=== PATIENT | male | born 1950 | race Caucasian/White ===

== ENCOUNTER 2016-11-08 12:01 | Emergency (ER) | payer OTHER ==
[2016-11-08 12:15] VITALS: BP 137/92; TEMP 97.7; BMI 27.4
[2016-11-08] MEDS ORDERED: AMOX TR/POT CLAV 875MG/125MG TABLETS (FP) ONE (12:19)
[2016-11-08] MEDS ORDERED: AMOX TR/POT CLAV 875MG/125MG TABLETS (FP) PO ONE (12:19)
--- NOTE | 2016-11-08 12:22 | PDOC ---
History of Present Illness - General Chief Complaint: Pain Stated Complaint: LEFT CHEEK SWELLING Time Seen by Provider: 11/08/16 12:03 History Source: Patient Exam Limitations: No Limitations - History of Present Illness Initial Comments: 11/08/16 12:22 65 she'll male with past medical history of hypertension, hyperlipidemia, coronary disease status post [place], BPH presents with left cheek swelling. 2 days ago, the patient had accidentally bit down with his dentures on his left cheek. Developed left cheek swelling. No fevers or chills. No drooling or difficulty breathing or voice changes. Had taken a dose of Levaquin that he had from leftovers and came to ED for further evaluation. States that he can see his dentist tomorrow. Past History - Past Medical History Allergies/Adverse Reactions: Allergies Allergy/AdvReac Type Severity Reaction Status Date / Time No Known Allergies Allergy Verified 11/08/16 12:03 Home Medications: Ambulatory Orders Aspirin [ASA -] 325 mg PO DAILY 07/07/13 Tamsulosin HCl [Flomax] 0.4 mg PO DAILY 07/07/13 Amoxicillin/Potassium Clav [Augmentin 875-125 Tablet] 1 each PO BID #14 tablet 11/08/16 Simvastatin 40 mg PO DAILY 11/08/16 Cardiac Disorders: Yes ([place] in 06/2013) Diabetes: No GI Disorders: No Disorders: Yes (BPH) HTN: No Hypercholesterolemia: Yes - Surgical History Cardiac Surgery: Yes (cardiac cath,stents x 1) - Psycho/Social/Smoking Cessation Hx Anxiety: No Suicidal Ideation: No Smoking History: Former smoker If you are a former smoker, when did you quit?: 2002 Information on smoking cessation initiated: No Hx Alcohol Use: No Drug/Substance Use Hx: No Substance Use Type: None Review of Systems - Review of Systems Able to Perform ROS?: Yes Comments:: 11/08/16 12:23 GENERAL/CONSTITUTIONAL: No fever, weakness. HEAD, EYES, EARS, NOSE AND THROAT: +left cheek swelling CARDIOVASCULAR: No chest pain or shortness of breath. RESPIRATORY: No cough, wheezing, or hemoptysis. GASTROINTESTINAL: No abdominal pain, nausea, vomiting, diarrhea, or decreased PO intolerance. GENITOURINARY: No dysuria, frequency, or change in urination. MUSCULOSKELETAL: No joint or muscle swelling or pain. No neck or back pain. SKIN: No rash NEUROLOGIC: No headache, vertigo, loss of consciousness, or change in strength/ sensation. ENDOCRINE: No increased thirst. No abnormal weight change. HEMATOLOGIC/LYMPHATIC: No anemia, easy bleeding, or history of blood clots. ALLERGIC/IMMUNOLOGIC: No hives or skin allergy. *Physical Exam - Vital Signs Last Vital Signs Temp Pulse Resp BP Pulse Ox 97.7 F 119 H 18 137/92 98 11/08/16 12:02 11/08/16 12:02 11/08/16 12:02 11/08/16 12:02 11/08/16 12:02 - Physical Exam Comments: 11/08/16 12:23 GENERAL: Awake, alert, and fully oriented, in no acute distress. HEAD: No signs of trauma EYES: PERRLA, EOMI, sclera anicteric, conjunctiva clear ENT: +left cheek induration approx 3x3 cm. No areas of fluctuance. TTP. no open wounds. NECK: Normal ROM, supple, no lymphadenopathy, JVD, or masses LUNGS: Breath sounds equal, clear to auscultation bilaterally. No wheezes, and no crackles HEART: Regular rate and rhythm, normal S1 and S2, no murmurs, rubs or gallops ABDOMEN: Soft, nontender, normoactive bowel sounds. No guarding, no rebound. No masses EXTREMITIES: Normal range of motion, no edema. No clubbing or cyanosis. No cords, erythema, or tenderness NEUROLOGICAL: Cranial nerves II through XII grossly intact. Normal speech, normal gait SKIN: Warm, Dry, normal turgor, no rashes or lesions noted. Medical Decision Making - Medical Decision Making 11/08/16 12:20 Vital Signs Temp Pulse Resp BP Pulse Ox 97.7 F 119 H 18 137/92 98 11/08/16 12:02 11/08/16 12:02 11/08/16 12:02 11/08/16 12:02 11/08/16 12:02 65 year old male c/ left cheek cellulitis. No evidence of airway compromise. Well-appearing and nontoxic. No evidence of abscess at this time on my physical exam. Initiate augmentin. Pt states he can see his dentist tomorrow. Return precautions given including difficulty breathing. I discussed the physical exam findings, ancillary test results and final diagnoses with the patient. I answered all of the patient's questions. The patient was satisfied with the care received and felt comfortable with the discharge plan and treatment plan. The patient will call their primary care physician within 24 hours to arrange follow-up and will return to the Emergency Department with any new, persistant or worsening symptoms. *DC/Admit/Observation/Transfer Diagnosis at time of Disposition: Cellulitis of cheek - Discharge Dispostion Disposition: HOME Condition at time of disposition: Stable Admit: No - Prescriptions Prescriptions: Amoxicillin/Potassium Clav [Augmentin 875-125 Tablet] 1 each PO BID #14 tablet - Referrals Referrals: Ventura Izaguirre MD [Primary Care Provider] - - Patient Instructions Printed Discharge Instructions: DI for Cellulitis -- Adult Additional Instructions: It is very important that you take your antibiotic (augmentin) every 12 hours for the next week. Please see your dentist tomorrow. If you notice that swelling has worsened drastically, or you cannot breathe, or have drooling because difficulty swallowing, it is important that you return to the ER immediately.
[2016-11-08 12:27] VITALS: PULSE 109
== END 2016-11-08 12:29 | disposition home or self-care (01) ==
LOC: FER 12:01
DX: L03.211 Cellulitis of face (principal); I25.2 Old myocardial infarction; Z95.5 Presence of coronary angioplasty implant and graft; Z87.891 Personal history of nicotine dependence; E78.00 Pure hypercholesterolemia, unspecified; N40.0 Benign prostatic hyperplasia without lower urinary tract symptoms
CPT/HCPCS: 99282-25

== ENCOUNTER 2016-12-17 13:48 | Inpatient (IN) | payer OTHER ==
[2016-12-17] MEDS ORDERED: SODIUM CHLORIDE 0.9% 1000 ML INFUS.BAG IV ONE ×2 (14:07→15:49)
--- NOTE | 2016-12-17 14:08 | PDOC ---
History of Present Illness - General History Source: Patient, Old Records Exam Limitations: No Limitations - History of Present Illness Initial Comments: 12/17/16 14:15 The patient is a 66 year old male with a past medical history hypertension, hyperlipidemia, coronary disease status post [place], BPH, who presents to the Emergency Department for further evaluation of fever and chills today. The patient states that on Tuesday he had a prostate biopsy performed by Dr. Romo who informed him that if he had any fever or chills he should report to the ED. The patient states that he measured his fever at home to be 102F and had associated chills. The patient did not report any alleviating or exacerbating factors. The patient did not try to treat symptoms at home. He notes that he had one episode of hematuria the afternoon after having his prostate biopsy. The patient denies nausea, vomiting, and diarrhea. The patient denies chest pain, cough, and shortness of breath. <Spencer Titus - Last Filed: 12/17/16 14:15> <Roselyn Saini - Last Filed: 12/17/16 17:40> - General Chief Complaint: Urinary Problem Stated Complaint: FEVER,CHILLS,URINARY PROBLEM Time Seen by Provider: 12/17/16 13:55 Past History <Spencer Titus - Last Filed: 12/17/16 14:15> - Past Medical History Cardiac Disorders: Yes ([place] in 06/2013) Diabetes: No GI Disorders: No Disorders: Yes (BPH) HTN: No Hypercholesterolemia: Yes - Surgical History Cardiac Surgery: Yes (cardiac cath,stents x 1) - Psycho/Social/Smoking Cessation Hx Anxiety: No Suicidal Ideation: No Smoking History: Former smoker Have you smoked in the past 12 months: No If you are a former smoker, when did you quit?: 2002 Information on smoking cessation initiated: No Hx Alcohol Use: No Drug/Substance Use Hx: No Substance Use Type: None <Roselyn Saini - Last Filed: 12/17/16 17:40> - Past Medical History Allergies/Adverse Reactions: Allergies Allergy/AdvReac Type Severity Reaction Status Date / Time No Known Allergies Allergy Verified 12/17/16 13:52 Home Medications: Ambulatory Orders Aspirin [ASA -] 325 mg PO DAILY 07/07/13 Tamsulosin HCl [Flomax] 0.4 mg PO DAILY 07/07/13 Simvastatin 40 mg PO DAILY 11/08/16 Review of Systems - Review of Systems Able to Perform ROS?: Yes Comments:: GENERAL/CONSTITUTIONAL: (+) Fever, Chills. No weakness. HEAD, EYES, EARS, NOSE AND THROAT: No change in vision. No ear pain or discharge. No sore throat. GASTROINTESTINAL: No nausea, vomiting, diarrhea or constipation. GENITOURINARY: (+) Hematuria. No dysuria or frequency. CARDIOVASCULAR: No chest pain or shortness of breath. RESPIRATORY: No cough, wheezing, or hemoptysis. MUSCULOSKELETAL: No joint or muscle swelling or pain. No neck or back pain. SKIN: No rash NEUROLOGIC: No headache, vertigo, loss of consciousness, or change in strength/ sensation. ENDOCRINE: No increased thirst. No abnormal weight change. HEMATOLOGIC/LYMPHATIC: No anemia, easy bleeding, or history of blood clots. ALLERGIC/IMMUNOLOGIC: No hives or skin allergy. <Spencer Titus - Last Filed: 12/17/16 14:15> *Physical Exam - Vital Signs Last Vital Signs Temp Pulse Resp BP Pulse Ox 103.1 F H 132 H 18 149/98 97 12/17/16 14:11 12/17/16 13:51 12/17/16 13:51 12/17/16 13:51 12/17/16 13:51 - Physical Exam Comments: GENERAL: Awake, alert, and fully oriented, in no acute distress HEAD: No signs of trauma EYES: PERRLA, EOMI, sclera anicteric, conjunctiva clear ENT: Auricles normal inspection, nares patent, Moist mucosa NECK: Normal ROM, supple, no lymphadenopathy, JVD, or masses LUNGS: Breath sounds equal, clear to auscultation bilaterally. No wheezes, and no crackles HEART: Regular rate and rhythm, normal S1 and S2, no murmurs, rubs or gallops ABDOMEN: Soft, nontender, normoactive bowel sounds. No guarding, no rebound. No masses EXTREMITIES: Normal range of motion, no edema. No clubbing or cyanosis. No cords, erythema, or tenderness NEUROLOGICAL: Normal speech SKIN: Warm, Dry, normal turgor, no rashes or lesions noted. <Spencer Titus - Last Filed: 12/17/16 14:15> - Vital Signs Last Vital Signs Temp Pulse Resp BP Pulse Ox 98.6 F 132 H 18 149/98 97 12/17/16 13:51 12/17/16 13:51 12/17/16 13:51 12/17/16 13:51 12/17/16 13:51 <Roselyn Saini - Last Filed: 12/17/16 17:40> Heart Score/ECG Review #1 General ECG Interpretation: Sinus Rhythm, Normal Rate (sinus tachycardia, rate 114 bpm), Normal Intervals, No acute ischemic changes - ECG Intrepretation Rhythm: Regular Rhythm - Collins Collins: Normal - ST and T Non Specific ST-T Wave changes: Yes Comment:: 12/17/16 17:40 twi III, AVF v5, V6 <Roselyn Saini - Last Filed: 12/17/16 17:40> ED Treatment Course - LABORATORY CBC & Chemistry Diagram: 12/17/16 14:25 12/17/16 14:25 <Roselyn Saini - Last Filed: 12/17/16 17:40> Medical Decision Making - Medical Decision Making 12/17/16 14:04 66 yo Male with h/o BPH, s/p prostate biopsy 2 days ago, here today with c/o fever 102 and chills. was taking abx, unknown name since procedure. no urinary complaints, no n/v no new back pain. since, fever has resolved. no other complaints. open awake, alert lungs CTAB. heart RRR no mr/g. abd soft NT. skin warm and dry. differential: sepsis, uti, bacteremia. plan cbc lyts cultures ua. reassess. will d/w dr. blunt. 12/17/16 15:42 d/w DR Barron, who request admission to the hospitalist. discussed concerns regarding pt , who has alzheimers dementia and lives with patient. will try to coordinate some to stay with her at home. <Roselyn Saini - Last Filed: 12/17/16 17:40> *DC/Admit/Observation/Transfer - Attestations Scribe Attestion: Documentation prepared by Spencer Titus, acting as medical records director for Roselyn Saini MD. <Spencer Titus - Last Filed: 12/17/16 14:15> - Discharge Dispostion Admit: Yes <Roselyn Saini - Last Filed: 12/17/16 17:40> Diagnosis at time of Disposition: Sepsis, UTI (urinary tract infection) - Discharge Dispostion Condition at time of disposition: Fair
[2016-12-17] MEDS ORDERED: ACETAMINOPHEN 325 MG TABLET (FP) PO ONE (14:09)
[2016-12-17] MEDS ORDERED: ACETAMINOPHEN 325 MG TABLET (FP) ONE (14:11)
[2016-12-17 14:50] LABS: ALK PHOS 66 U/L (32-92); ANION GAP 10 (8-16); BILIRUBIN,TOTAL 0.6 mg/dl (0.2-1.0); CALCIUM 9.4 mg/dl (8.4-10.2); CO2 23 mmol/L (22-28); CREATININE 1.4 mg/dl (0.6-1.3); GLUCOSE,RANDOM 88 mg/dl (74-106); SGOT/AST 20 U/L (10-42); SGPT/ALT 16 U/L (10-40); TOT PROT 6.9 g/dl (6.4-8.3)
[2016-12-17 14:58] LABS: BASOPHIL 0.9 % (0-2.0); EOSINOPHIL 0.2 % (0-4.5); MCH 30.4 pg (25.7-33.7); MCHC 33.8 g/dl (32.0-35.9); MEAN CELL VOLUME 89.7 fl (80-96); MEAN PLT VOLUME 9.8 fl (7.5-11.1); NEUTROPHILS 87.6 % (42.8-82.8); PLATELET COUNT 183 K/MM3 (134-434); RDW 13.7 % (11.9-15.9); WHITE BLOOD COUNT 15.3 K/mm3 (4.0-10.8)
[2016-12-17] MEDS ORDERED: CEFTRIAXONE 1 GM in DEXTROSE 5%-WATER - 50 ML IVPB ONE (14:59)
[2016-12-17] MEDS ORDERED: VANCOMYCIN 1 GRAM (PRE-DOCKED) 1,000 MG/250 ML BAG IVPB ONE (15:00)
[2016-12-17] MEDS ORDERED: VANCOMYCIN 1,000 MG VIAL (RESTRICTED TO ID ONLY) ONE (15:08)
[2016-12-17] MEDS ORDERED: cefTRIAXone SODIUM 1 GM VIAL ONE (15:08)
[2016-12-17 15:30] LABS: URINE APPEARANCE Clear; URINE BILIRUBIN Negative (NEGATIVE); URINE BLOOD Moderate (NEGATIVE); URINE GLUCOSE (UA) Negative (NEGATIVE); URINE KETONE Negative (NEGATIVE); URINE NITRITE Positive (NEGATIVE); URINE PROTEIN Negative (NEGATIVE); URINE UROBILINOGEN 0.2 E.U/dl (0.2-1.0)
--- NOTE | 2016-12-17 16:15 | CONSULT ---
Consult Consult Specialty:: urology Referred by:: ER Reason for Consultation:: fever after prostate biopsy - History of Present Illness Chief Complaint: fever History of Present Illness: 66 year old male two days S/P TRUS prostate biopsy with fever and chills. Patient is able to void without hematuria. - History Source History Provided By: Patient Limitations to Obtaining History: No Limitations - Past Medical History Renal/: No: Renal Failure, Renal Inusuff, BPH, Cancer, Hematuria, Hemodialysis , Neurogenic Bladder, Renal Calculi, UTI, Other - Alcohol/Substance Use Hx Alcohol Use: No - Smoking History Smoking history: Former smoker Have you smoked in the past 12 months: No If you are a former smoker, when did you quit?: 2002 Home Medications - Allergies Allergies/Adverse Reactions: Allergies Allergy/AdvReac Type Severity Reaction Status Date / Time No Known Allergies Allergy Verified 12/17/16 13:52 - Home Medications Home Medications: Ambulatory Orders Aspirin [ASA -] 325 mg PO DAILY 07/07/13 Tamsulosin HCl [Flomax] 0.4 mg PO DAILY 07/07/13 Simvastatin 40 mg PO DAILY 11/08/16 Review of Systems - Review of Systems Constitutional: reports: Chills, Diaphoresis, Fever, Malaise Genitourinary: reports: Frequency. denies: Burning, Dysuria, Flank Pain, Hematuria, Incontinence Physical Exam Vital Signs: Vital Signs Temperature 98.2 F 12/17/16 15:51 Pulse Rate 118 H 12/17/16 15:51 Respiratory Rate 18 12/17/16 15:51 Blood Pressure 119/86 12/17/16 15:53 O2 Sat by Pulse Oximetry (%) 97 12/17/16 15:51 Constitutional: Yes: Well Nourished, No Distress, Calm Gastrointestinal: Yes: WNL, Normal Bowel Sounds, Soft Renal/: No: Bladder Distention, CVA Tenderness - Left, CVA Tenderness - Right , [place] Present, Hematuria Labs: CBC, BMP 12/17/16 14:25 12/17/16 14:25 Problem List - Problems (1) Acute bacterial prostatitis Assessment/Plan: fever after prostate biopsy. ID consultation spoken to. IV abx. IV hydration, blood and urine cultures. Voiding well. HD stable., Code(s): N41.0 - ACUTE PROSTATITIS
--- NOTE | 2016-12-17 17:13 | PN ---
Progress Note (short form) - Note Progress Note: ID Consult dictated High grade fever/ chills, weakness s/p prostate bx (12/15) Possible sepsis secondary to source Pending cultures, empiric meropenem Discussed with Urology
[2016-12-17 17:15] LABS: URINE COLOR YELLOW; URINE LEUK ESTERASE TRACE (NEGATIVE)
[2016-12-17] MEDS ORDERED: ONDANSETRON 4 MG/2 ML VIAL IVPB PRN (18:47)
[2016-12-17 18:53] LABS: URIC ACID CRYSTALS MODERATE /hpf (NONE SEEN); URINE BACTERIA MODERATE /hpf (NEGATIVE); URINE RBC 20-40 /hpf (0-3)
[2016-12-17] MEDS: MEROPENEM 500 MG VIAL (RESTRICTED TO ID) IVPB SCH (18:58)
[2016-12-17] MEDS: SODIUM CHLORIDE 1,000 ML IV SCH (19:30)
[2016-12-17 20:37] VITALS: BMI 28.4
[2016-12-17] MEDS: ATORVASTATIN CA 20 MG TABLET (FP) PO SCH (21:06)
[2016-12-17] MEDS ORDERED: VANCOMYCIN 1,000 MG in DEXTROSE 5%-WATER - 250 ML IVPB SCH (22:00)
--- NOTE | 2016-12-17 23:09 | HP ---
CHIEF COMPLAINT: fever PCP: Dmitriy, Urology: Kyaw HISTORY OF PRESENT ILLNESS: This is a 66 year old male with BPH who is s/p TRUS prostate biopsy on 12/15. Pt noted that he had chills around 430am this morning which resolved after voiding and getting under the covers, but then later around 1030 felt tired and so he took his temperature and it was 103. Pt called his urologist who instructed him to go to the ED. Pt feeling better on exam but is repeatedly going to the bathroom every 15-20 minutes and only a little comes out and then he goes back to bed and feels as if he has to go again. ER course was notable for: (1) temp 103.1 (2) WBC 15.3, lactic acid 2.2 (3) tx with ceftriaxone Recent Travel: none PAST MEDICAL HISTORY: HTN HLD CAD s/p [place] 2012 BPH PAST SURGICAL HISTORY: stent x 1 2012 tonsillectomy age 10 Social History: Smoking: quit 2002, smoked 3+ppd since age [age] Alcohol: pt denies Drugs: pt denies Family History: mother age 64-ME, h/o DM father age 69-ME, h/o emphysema Allergies No Known Allergies Allergy (Verified 12/17/16 13:52) HOME MEDICATIONS: 3 Medication Instructions Recorded Aspirin [ASA -] 325 mg PO DAILY 07/07/13 Tamsulosin HCl [Flomax] 0.4 mg PO DAILY 07/07/13 Simvastatin 40 mg PO DAILY 11/08/16 REVIEW OF SYSTEMS CONSTITUTIONAL: Present: fever, chills Absent: diaphoresis, generalized weakness, malaise, loss of appetite, weight change HEENT: Absent: rhinorrhea, nasal congestion, throat pain, throat swelling, difficulty swallowing, mouth swelling, ear pain, eye pain, visual changes CARDIOVASCULAR: Absent: chest pain, syncope, palpitations, irregular heart rate, lightheadedness , peripheral edema RESPIRATORY: Absent: cough, shortness of breath, dyspnea with exertion, orthopnea, wheezing, stridor, hemoptysis GASTROINTESTINAL: Absent: abdominal pain, abdominal distension, nausea, vomiting, diarrhea, constipation, melena, hematochezia GENITOURINARY: Present: frequency Absent: dysuria, urgency, hesitancy, hematuria, flank pain, genital pain MUSCULOSKELETAL: Absent: myalgia, arthralgia, joint swelling, back pain, neck pain SKIN: Absent: rash, itching, pallor HEMATOLOGIC/IMMUNOLOGIC: Absent: easy bleeding, easy bruising, lymphadenopathy, frequent infections ENDOCRINE: Absent: unexplained weight gain, unexplained weight loss, heat intolerance, cold intolerance NEUROLOGIC: Absent: headache, focal weakness or paresthesias, dizziness, unsteady gait, seizure, mental status changes, bladder or bowel incontinence PSYCHIATRIC: Absent: anxiety, depression, suicidal or homicidal ideation, hallucinations. PHYSICAL EXAMINATION Vital Signs - 24 hr 3 12/17/16 12/17/16 12/17/16 13:51 14:11 14:25 15:51 Temperature 98.6 F 103.1 F H 98.2 F Pulse Rate 132 H Pulse Rate [ 118 H Apical] Respiratory 18 18 Rate Blood Pressure 149/98 149/98 Blood Pressure 119/86 [Arm] O2 Sat by Pulse 97 97 Oximetry (%) 3 12/17/16 12/17/16 12/17/16 18:17 21:00 22:49 Temperature 98.5 F 98.9 F Pulse Rate 95 H 102 H Pulse Rate [ 109 H Apical] Respiratory 18 16 16 19 Rate Blood Pressure 133/79 150/80 Blood Pressure [Arm] O2 Sat by Pulse 98 98 98 98 Oximetry (%) GENERAL: Awake, alert, and fully oriented, in no acute distress. HEAD: Normal with no signs of trauma. EYES: Pupils equal, round and reactive to light, extraocular movements intact, sclera anicteric, conjunctiva clear. No lid lag. EARS, NOSE, THROAT: Ears normal, nares patent, oropharynx clear without exudates. Moist mucous membranes. NECK: Normal range of motion, supple without lymphadenopathy, JVD, or masses. LUNGS: Breath sounds equal, clear to auscultation bilaterally. No wheezes, and no crackles. No accessory muscle use. HEART: Regular rate and rhythm, normal S1 and S2 without murmur, rub or gallop. ABDOMEN: Soft, nontender, not distended, normoactive bowel sounds, no guarding, no rebound, no masses. No hepatomegaly or splenomegaly. Suprapubic area noted with dullness to percussion, fullness, tender on palpation MUSCULOSKELETAL: Normal range of motion at all joints. No bony deformities or tenderness. No CVA tenderness. UPPER EXTREMITIES: 2+ pulses, warm, well-perfused. No cyanosis. No clubbing. No peripheral edema. LOWER EXTREMITIES: 2+ pulses, warm, well-perfused. No calf tenderness. No peripheral edema. NEUROLOGICAL: Cranial nerves II-XII intact. Normal speech. Normal gait. PSYCHIATRIC: Cooperative. Good eye contact. Appropriate mood and affect. SKIN: Warm, dry, normal turgor, no rashes or lesions noted, normal capillary refill. Laboratory Results - last 24 hr 3 12/17/16 12/17/16 12/17/16 12/17/16 14:02 14:25 14:25 15:30 WBC 15.3 H RBC 5.61 H Hgb 17.0 H Hct 50.3 H MCV 89.7 MCHC 33.8 RDW 13.7 Plt Count 183 MPV 9.8 Neutrophils % 87.6 H Lymphocytes % 3.5 L Monocytes % 7.8 Eosinophils % 0.2 Basophils % 0.9 Sodium 136 Potassium 4.7 Chloride 103 Carbon Dioxide 23 Anion Gap 10 BUN 23 H Creatinine 1.4 H Creat Clearance w eGFR 50.55 Random Glucose 88 Lactic Acid 2.2 H* 1.2 Calcium 9.4 Total Bilirubin 0.6 AST 20 ALT 16 Alkaline Phosphatase 66 Total Protein 6.9 Albumin 4.0 Urine Color Yellow Urine Appearance Clear Urine pH 5.0 Ur Specific [place] 1.020 Urine Protein Negative Urine Glucose (UA) Negative Urine Ketones Negative Urine Blood Moderate Urine Nitrite Positive Urine Bilirubin Negative Urine Urobilinogen 0.2 e.u/dl Ur Leukocyte Esterase Trace H Urine RBC 20-40 Urine WBC 10-15 Ur Epithelial Cells 3-5 Uric Acid Crystals Moderate Urine Bacteria Moderate ASSESSMENT/PLAN: 66yM with PMH HTN, HLD, CAD s/p [place], BPH presented with fever s/p prostate biopsy 12/15. Urosepsis, severe - as evidenced by fever, tachy, WBC and lactic acid - ID consult appreciated, cont same - cont meropenem - NS @ 125cc/hr x 2 liters urinary retention - bladder scan done, >800cc in bladder - DW Dr. Ryne Stevens who recommends indwelling FC, same placed, 700cc clear yellow urine obtained - maintain IFC - urology consult appreciated - cont flomax HLD - cont zocor CAD s/p [place] - cont zocor and ASA HTN - on no medications, monitor and initiate if indicated DVT PPX - heparin 5000u SC TID FEN - NS @ 125cc/hr x 2 liters then reassess - repeat labs in am - regular diet Dispo: Pt currently requires inpatient management of his emergent condition. Visit type - Emergency Visit Emergency Visit: Yes ED Registration Date: 12/17/16 Care time: The patient presented to the Emergency Department on the above date and was hospitalized for further evaluation of their emergent condition. - New Patient This patient is new to me today: Yes Date on this admission: 12/17/16 - Critical Care Critical Care patient: No
[2016-12-17] MEDS ORDERED: LIDOCAINE HCL 2% JELLY (30 ML/TUBE) TP ONE (23:13)
[2016-12-17] MEDS: ACETAMINOPHEN 325 MG TABLET (FP) PO PRN (23:59)
[2016-12-18] MEDS: HEPARIN NA (PORCINE) 5,000 UNITS/ML 1ML VIAL SQ SCH ×3 (01:47→17:43)
[2016-12-18] MEDS: MEROPENEM 500 MG VIAL (RESTRICTED TO ID) IVPB SCH ×3 (01:47→17:43)
[2016-12-18 08:02] LABS: ALBUMIN 3.2 g/dl (3.5-5.0); ALK PHOS 52 U/L (32-92); ANION GAP 6 (8-16); BILIRUBIN,TOTAL 1.1 mg/dl (0.2-1.0); CALCIUM 8.8 mg/dl (8.4-10.2); CO2 23 mmol/L (22-28); COCKROFT - GAULT 80.94; GLUCOSE,RANDOM 98 mg/dl (74-106); SGOT/AST 16 U/L (10-42); SGPT/ALT 13 U/L (10-40); TOT PROT 5.6 g/dl (6.4-8.3)
[2016-12-18 08:06] LABS: BASOPHIL 0.1 % (0-2.0); EOSINOPHIL 0.3 % (0-4.5); MCH 30.1 pg (25.7-33.7); MCHC 33.8 g/dl (32.0-35.9); MEAN CELL VOLUME 88.9 fl (80-96); MEAN PLT VOLUME 9.3 fl (7.5-11.1); NEUTROPHILS 88.3 % (42.8-82.8); PLATELET COUNT 153 K/MM3 (134-434); RDW 13.8 % (11.9-15.9)
[2016-12-18] MEDS: TAMSULOSIN HCL 0.4 MG CAP.ER.24H (FP) PO SCH (08:47)
[2016-12-18] MEDS: ASPIRIN 325 MG TABLET PO SCH (09:18)
--- NOTE | 2016-12-18 09:25 | PN ---
Physical Exam: SUBJECTIVE: Patient seen and examined. Had cough productive of white sputum overnight, no CP or SOB. Had three episodes of diarrhea. No fevers, chills, or abdominal pain. OBJECTIVE: HR remains elevated at 111. Patient now states he was taking metoprolol succinate 12.5mg daily and that this was dc'd prior to surgery. Vital Signs Period Temp Pulse Resp BP Sys/Yi Pulse Ox Last 24 Hr 98.2 F-99.4 F 88-114 16-19 123-150/71-80 98-100 GENERAL: The patient is awake, alert, and fully oriented, in no acute distress. HEAD: Normal with no signs of trauma. EYES: PERRL, extraocular movements intact, sclera anicteric, conjunctiva clear. No ptosis. ENT: Ears normal, nares patent, oropharynx clear without exudates, moist mucous membranes. NECK: Trachea midline, full range of motion, supple. LUNGS: Breath sounds equal, clear to auscultation bilaterally, no wheezes, no crackles, no accessory muscle use. HEART: Tachycardic. Regular rate and rhythm, S1, S2 without murmur, rub or gallop. ABDOMEN: Soft, nontender, nondistended, normoactive bowel sounds, no guarding, no rebound, no hepatosplenomegaly, no masses. EXTREMITIES: 2+ pulses, warm, well-perfused, no edema. NEUROLOGICAL: Cranial nerves II through XII grossly intact. Normal speech, gait not observed. PSYCH: Normal mood, normal affect. SKIN: Warm, dry, normal turgor, no rashes or lesions noted Laboratory Results - last 24 hr 12/18/12/18/16 07:20 07:20 WBC 16.0 H RBC 4.92 Hgb 14.8 D Hct 43.8 MCV 88.9 MCHC 33.8 RDW 13.8 Plt Count 153 MPV 9.3 Neutrophils % 88.3 H Lymphocytes % 4.7 L D Monocytes % 6.6 Eosinophils % 0.3 Basophils % 0.1 Sodium 138 Potassium 4.4 Chloride 109 H Carbon Dioxide 23 Anion Gap 6 L BUN 13 D Creatinine 1.0 D Creat Clearance w eGFR > 60 Random Glucose 98 Calcium 8.8 Total Bilirubin 1.1 H D AST 16 ALT 13 Alkaline Phosphatase 52 D Total Protein 5.6 L Albumin 3.2 L Active Medications Generic Name Dose Route Start Last Admin Trade Name Freq PRN Reason Stop Dose Admin Acetaminophen 650 mg 12/17/16 18:47 12/17/16 23:59 Tylenol - PO 650 mg Q4H PRN Administration FEVER OR PAIN Aspirin 325 mg 12/18/16 10:00 12/18/16 09:18 Asa - PO 325 mg DAILY GULSHAN Administration Atorvastatin Calcium 20 mg 12/17/16 22:00 12/17/16 21:06 Lipitor - PO 20 mg HS GULSHAN Administration Heparin Sodium (Porcine) 5,000 unit 12/18/16 02:00 12/18/16 09:18 Heparin - SQ 5,000 unit Q8H-IV GULSHAN Administration Sodium Chloride 1,000 mls @ 125 mls/hr 12/17/16 19:00 12/17/16 19:30 Normal Saline - IV 12/19/16 02:59 125 mls/hr ASDIR GULSHAN Administration Meropenem 500 mg 12/17/16 18:00 12/18/16 01:47 Merrem (Restricted To Id) - IVPB 500 mg Q8H-IV GULSHAN Administration Ondansetron HCl 4 mg 12/17/16 18:47 Zofran Injection IVPB Q6H PRN NAUSEA Tamsulosin HCl 0.4 mg 12/18/16 08:30 12/18/16 08:47 Flomax - PO 0.4 mg DAILY@0830 GULSHAN Administration ASSESSMENT/PLAN: 66 year old male with a history of HTN, HLD, CAD s/p [place], and BPH admitted with fever s/p prostate biopsy 12/15. 1. : Sepsis secondary to UTI -Continue Meropenem -Follow up urine culture (growing lactose fermenting neg bacilli) -Follow up blood cultures -Follow WBC (16 today), fever curve (afebrile since 2pm yesterday) -Continue maintenance IVF -Maced[place] catheter for management of urinary retention -Continue Flomax 2. CARDS HLD -Continue zocor CAD s/p [place] -Continue ASA HTN -Re-start metoprolol 3. F/E/N -NS 125 mLs/hr -Regular diet 4. Ppx -Sqh Dispo: Continues to require inpatient care. Visit type - Emergency Visit Emergency Visit: Yes ED Registration Date: 12/17/16 Care time: The patient presented to the Emergency Department on the above date and was hospitalized for further evaluation of their emergent condition. - New Patient This patient is new to me today: Yes Date on this admission: 12/18/16 - Critical Care Critical Care patient: No - Discharge Referral Referred to [facility] No
[2016-12-18] MEDS ORDERED: PATIENT'S OWN MEDICATION (NON-FORMULARY) (Simvastatin [Simvastatin] 40 MG) PO SCH (10:00)
[2016-12-18] MEDS: METOPROLOL SUCCINATE 25 MG TAB.SR.24H (FP) PO SCH (10:20)
--- NOTE | 2016-12-18 10:56 | CONS ---
DATE OF CONSULTATION: DATE OF DICTATION: 12/17/2016 HISTORY OF PRESENT ILLNESS: A 66-year-old male evaluated for sepsis. The patient underwent a prostate biopsy on Thursday, December 15, 2016, for an elevated PSA. He did well postoperatively. Perioperatively, he had received an oral cephalosporin and sulfa. He reports taking the antibiotics from 2 days prior to the procedure until 1 day postprocedure. In addition, he received an intramuscular dose of tobramycin 1 hour before the biopsy. The patient did okay postoperatively until early this morning at 4:00 a.m. when he developed abrupt onset of shaking chills. Later in the day, he complained of profound weakness. He was noted to have fever at home. He contacted his urologist and was instructed to go to the emergency room. In the emergency room, patient's temperature was noted to be 103.1. Cultures were obtained and he was empirically treated with antibiotics. At the present time, he is awake and alert. He has no focal complaint. He denies any pain. He denies any dysuria or gross hematuria. No suprapubic or flank pain. He denies prior history of serious infection requiring hospitalization or history of ESBL. PAST MEDICAL HISTORY: Positive for BPH, coronary artery disease, status post SC, hypertension, hyperlipidemia. ALLERGIES: No known allergies. MEDICATIONS: Aspirin, Flomax, simvastatin. SOCIAL HISTORY: He is a former smoker. He lives at home and cares for his who suffers from dementia. SYSTEMS REVIEW: Neurologic: No loss of consciousness, seizure activity, focal weakness. Cardiac: Negative chest pain or palpitations. Respiratory: Negative cough or sputum production. Gastrointestinal: Negative vomiting or diarrhea. Genitourinary: As per HPI. LABORATORY DATA: BUN 23, creatinine 1.4. Liver enzymes normal. Urinalysis: Trace leukocyte esterase. PHYSICAL EXAMINATION: General: He is awake and alert. He is sitting on the stretcher in the emergency room eating dinner in no acute distress. Vital Signs: Temperature 98.2, T-max 103.1, blood pressure 119/86, pulse 118, regular, respirations 18 per minute. HEENT: Sclerae anicteric. Cardiac: Heart sounds S1, S2. Tachycardic. Lungs: Clear. Abdomen: Soft. No tenderness elicited. No suprapubic or flank tenderness. Extremities: Negative for edema. IMPRESSION: 1. Fever, chills status post prostate biopsy, possible sepsis secondary to genitourinary source. 2. Postoperative prostate biopsy. 3. Benign prostatic hypertrophy. 4. Azotemia. RECOMMENDATIONS: Await culture results. Empiric antibiotic coverage with meropenem 500 mg IV piggyback every 8 hours pending culture results. Further recommendations pending cultures. Case discussed with Dr. Stevens. Will follow. Thank you for the kind referral. WILIAM BRANDON M.D. [id number]
[2016-12-18] MEDS: guaiFENesin 200 MG/10 ML 10 ML UNIT-DOSE CUPS PO PRN ×2 (17:43→23:26)
[2016-12-18] MEDS: ACETAMINOPHEN 325 MG TABLET (FP) PO PRN ×2 (17:43→23:26)
[2016-12-18] MEDS: ATORVASTATIN CA 20 MG TABLET (FP) PO SCH (20:59)
[2016-12-18] MEDS: SODIUM CHLORIDE 1,000 ML IV SCH (21:00)
[2016-12-19] MEDS ORDERED: REFRIGERATED ANITBIOTICS ONE (00:49)
[2016-12-19] MEDS: MEROPENEM 500 MG VIAL (RESTRICTED TO ID) IVPB SCH ×3 (01:00→19:30)
[2016-12-19] MEDS: HEPARIN NA (PORCINE) 5,000 UNITS/ML 1ML VIAL SQ SCH ×3 (01:01→19:30)
[2016-12-19] MEDS: guaiFENesin 200 MG/10 ML 10 ML UNIT-DOSE CUPS PO PRN ×2 (05:59→21:37)
[2016-12-19] MEDS: ACETAMINOPHEN 325 MG TABLET (FP) PO PRN ×2 (05:59→21:36)
[2016-12-19] MEDS: TAMSULOSIN HCL 0.4 MG CAP.ER.24H (FP) PO SCH (08:30)
--- NOTE | 2016-12-19 08:46 | PN ---
Physical Exam: SUBJECTIVE: Patient seen and examined. Complains of dry cough. OBJECTIVE: HR improved 94-102 with resumption of metoprolol. Spiked temp to 102.6 overnight. Vital Signs Period Temp Pulse Resp BP Sys/Yi Pulse Ox Last 24 Hr 98.2 F-102.6 F 94-114 18-18 126-145/70-82 96-98 GENERAL: The patient is awake, alert, and fully oriented, in no acute distress. HEAD: Normal with no signs of trauma. EYES: PERRL, extraocular movements intact, sclera anicteric, conjunctiva clear. No ptosis. ENT: Ears normal, nares patent, oropharynx clear without exudates, moist mucous membranes. NECK: Trachea midline, full range of motion, supple. LUNGS: Breath sounds equal, clear to auscultation bilaterally, no wheezes, no crackles, no accessory muscle use. HEART: Regular rate and rhythm, S1, S2 without murmur, rub or gallop. ABDOMEN: Soft, nontender, nondistended, normoactive bowel sounds, no guarding, no rebound, no hepatosplenomegaly, no masses. EXTREMITIES: 2+ pulses, warm, well-perfused, no edema. NEUROLOGICAL: Cranial nerves II through XII grossly intact. Normal speech, gait not observed. PSYCH: Normal mood, normal affect. SKIN: Warm, dry, normal turgor, no rashes or lesions noted Active Medications Generic Name Dose Route Start Last Admin Trade Name Freq PRN Reason Stop Dose Admin Acetaminophen 650 mg 12/17/16 18:47 12/19/16 05:59 Tylenol - PO 650 mg Q4H PRN Administration FEVER OR PAIN Aspirin 325 mg 12/18/16 10:00 12/18/16 09:18 Asa - PO 325 mg DAILY GULSHAN Administration Atorvastatin Calcium 20 mg 12/17/16 22:00 12/18/16 20:59 Lipitor - PO 20 mg HS GULSHAN Administration Guaifenesin 10 ml 12/18/16 17:33 12/19/16 05:59 Robitussin - PO 10 ml Q6H PRN Administration COUGH Heparin Sodium (Porcine) 5,000 unit 12/18/16 02:00 12/19/16 01:01 Heparin - SQ 5,000 unit Q8H-IV GULSHAN Administration Meropenem 500 mg 12/17/16 18:00 12/19/16 01:00 Merrem (Restricted To Id) - IVPB 500 mg Q8H-IV GULSHAN Administration Metoprolol Succinate 12.5 mg 12/18/16 10:00 12/18/16 10:20 Toprol Xl - PO 12.5 mg DAILY GULSHAN Administration Ondansetron HCl 4 mg 12/17/16 18:47 Zofran Injection IVPB Q6H PRN NAUSEA Tamsulosin HCl 0.4 mg 12/18/16 08:30 12/18/16 08:47 Flomax - PO 0.4 mg DAILY@0830 GULSHAN Administration ASSESSMENT/PLAN: 66 year old male with a history of HTN, HLD, CAD s/p [place], and BPH admitted with fever s/p prostate biopsy 12/15. 1. 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 CARDS HLD -Continue Zocor CAD s/p [place] -Continue ASA HTN -Re-start metoprolol 3. F/E/N -NS 42 mLs/hr -Regular diet 4. Ppx -Sqh Dispo: Continues to require inpatient care. Visit type - Emergency Visit Emergency Visit: Yes ED Registration Date: 12/17/16 Care time: The patient presented to the Emergency Department on the above date and was hospitalized for further evaluation of their emergent condition. - New Patient This patient is new to me today: No - Critical Care Critical Care patient: No - Discharge Referral Referred to [facility] Med P.C.: No
[2016-12-19 08:54] LABS: BASOPHIL 0.4 % (0-2.0); EOSINOPHIL 0.4 % (0-4.5); MCHC 33.5 g/dl (32.0-35.9); MEAN CELL VOLUME 89.7 fl (80-96); MEAN PLT VOLUME 9.5 fl (7.5-11.1); NEUTROPHILS 87.9 % (42.8-82.8); PLATELET COUNT 143 K/MM3 (134-434); RDW 13.7 % (11.9-15.9); WHITE BLOOD COUNT 13.8 K/mm3 (4.0-10.8)
[2016-12-19] MEDS ORDERED: SODIUM CHLORIDE 1,000 ML IV SCH (09:00)
[2016-12-19] MEDS: METOPROLOL SUCCINATE 25 MG TAB.SR.24H (FP) PO SCH (10:00)
[2016-12-19] MEDS ORDERED: PT OWN MED DRAWER 7, Y5N ONE (10:24)
[2016-12-19] MEDS: ASPIRIN 325 MG TABLET PO SCH (11:03)
[2016-12-19] MEDS: ATORVASTATIN CA 20 MG TABLET (FP) PO SCH (21:32)
[2016-12-20] MEDS: MEROPENEM 500 MG VIAL (RESTRICTED TO ID) IVPB SCH ×3 (01:23→18:05)
[2016-12-20] MEDS: HEPARIN NA (PORCINE) 5,000 UNITS/ML 1ML VIAL SQ SCH ×3 (01:23→18:06)
[2016-12-20] MEDS: TAMSULOSIN HCL 0.4 MG CAP.ER.24H (FP) PO SCH (08:30)
--- NOTE | 2016-12-20 08:32 | PN ---
Physical Exam: SUBJECTIVE: Patient seen and examined, patient reports feeling well, denies any tactile fever, chest pain or shortness of breath OBJECTIVE: patient is a 66 year old male with a history of HTN, HLD, CAD s/p MD , and BPH admitted with sepsis s/p prostate biopsy 12/15. Vital Signs Period Temp Pulse Resp BP Sys/Yi Pulse Ox Last 24 Hr 98.0 F-98.7 F 82-98 18-20 112-127/66-78 94-100 GENERAL: The patient is awake, alert, and fully oriented, in no acute distress. HEAD: Normal with no signs of trauma. EYES: PERRL, extraocular movements intact, sclera anicteric, conjunctiva clear. No ptosis. ENT: Ears normal, nares patent, oropharynx clear without exudates, moist mucous membranes. NECK: Trachea midline, full range of motion, supple. LUNGS: Breath sounds equal, clear to auscultation bilaterally to apexes, no wheezes, crackles to left lower base, no accessory muscle use. HEART: Regular rate and rhythm, S1, S2 without murmur, rub or gallop. ABDOMEN: Soft, nontender, nondistended, normoactive bowel sounds, no guarding, no rebound, no hepatosplenomegaly, no masses. EXTREMITIES: 2+ pulses, warm, well-perfused, no edema. NEUROLOGICAL: Cranial nerves II through XII grossly intact. Normal speech, gait not observed. PSYCH: Normal mood, normal affect. SKIN: Warm, dry, normal turgor, no rashes or lesions noted Laboratory Results - last 24 hr 12/19/16 06:00 WBC 13.8 H RBC 4.93 Hgb 14.8 Hct 44.2 MCV 89.7 MCHC 33.5 RDW 13.7 Plt Count 143 MPV 9.5 Neutrophils % 87.9 H Lymphocytes % 4.5 L Monocytes % 6.8 Eosinophils % 0.4 Basophils % 0.4 D Active Medications Generic Name Dose Route Start Last Admin Trade Name Freq PRN Reason Stop Dose Admin Acetaminophen 650 mg 12/17/16 18:47 12/19/16 21:36 Tylenol - PO 650 mg Q4H PRN Administration FEVER OR PAIN Aspirin 325 mg 12/18/16 10:00 12/19/16 11:03 Asa - PO 325 mg DAILY GULSHAN Administration Atorvastatin Calcium 20 mg 12/17/16 22:00 12/19/16 21:32 Lipitor - PO 20 mg HS GULSHAN Administration Guaifenesin 10 ml 12/18/16 17:33 12/19/16 21:37 Robitussin - PO 10 ml Q6H PRN Administration COUGH Heparin Sodium (Porcine) 5,000 unit 12/18/16 02:00 12/20/16 01:23 Heparin - SQ 5,000 unit Q8H-IV GULSHAN Administration Sodium Chloride 1,000 mls @ 42 mls/hr 12/19/16 09:00 12/19/16 09:00 Normal Saline - IV 42 mls/hr ASDIR GULSHAN Administration Meropenem 500 mg 12/17/16 18:00 12/20/16 01:23 Merrem (Restricted To Id) - IVPB 500 mg Q8H-IV GULSHAN Administration Metoprolol Succinate 12.5 mg 12/18/16 10:00 12/19/16 10:00 Toprol Xl - PO 12.5 mg DAILY GULSHAN Administration Ondansetron HCl 4 mg 12/17/16 18:47 Zofran Injection IVPB Q6H PRN NAUSEA Tamsulosin HCl 0.4 mg 12/18/16 08:30 12/19/16 08:30 Flomax - PO 0.4 mg DAILY@0830 GULSHAN Administration Microbiology 12/17/16 14:25 Blood - Peripheral Venous Blood Culture - Preliminary NO GROWTH OBTAINED AFTER 48 HOURS, INCUBATION TO CONTINUE FOR 3 DAYS. 12/17/16 14:15 Blood - Peripheral Venous Blood Culture - Preliminary NO GROWTH OBTAINED AFTER 48 HOURS, INCUBATION TO CONTINUE FOR 3 DAYS. 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 : Sepsis secondary to UTI -continue meropenem (12/17-) - blood cultures (12/17) NTD pending 2nd set of blood cultures - pt afebrile, wbc trending downward, pending am labs - ID Nikko, consulted and following urinary retenion - continue flomax - urology ([facility]) consulted and following 2. CARDS HLD -Continue Zocor CAD s/p MD -Continue ASA HTN - continue metoprolol, B/P at goal 3. F/E/N -Regular diet 4. Ppx -Sqh Dispo: Continues to require inpatient care. Visit type - Emergency Visit Emergency Visit: Yes ED Registration Date: 12/17/16 Care time: The patient presented to the Emergency Department on the above date and was hospitalized for further evaluation of their emergent condition. - New Patient This patient is new to me today: Yes Date on this admission: 12/20/16 - Critical Care Critical Care patient: No - Discharge Referral Referred to [facility] Med P.C.: No
--- NOTE | 2016-12-20 08:58 | EKG ---
Test Reason : Blood Pressure : / mmHG Vent. Rate : 114 BPM Atrial Rate : 114 BPM P-R Int : 132 ms QRS Dur : 090 ms QT Int : 318 ms P-R-T Axes : 075 017 -32 degrees QTc Int : 438 ms POOR DATA QUALITY, INTERPRETATION MAY BE ADVERSELY AFFECTED SINUS TACHYCARDIA INFERIOR INFARCT (CITED ON OR BEFORE 17-DEC-2016) ANTEROSEPTAL INFARCT , AGE UNDETERMINED ABNORMAL ECG WHEN COMPARED WITH ECG OF 07-JUL-2013 07:39, VENT. RATE HAS INCREASED BY 52 BPM Q waves now present in inferior leads and V3 ST elevation in inferior lead is no longer present Confirmed by DEV QUINTERO, ANNE ([id number]) on 12/20/2016 8:57:49 AM Referred By: MD ENRIQUE Confirmed By:ANNE MÉNDEZ MD
[2016-12-20] MEDS: METOPROLOL SUCCINATE 25 MG TAB.SR.24H (FP) PO SCH (10:00)
[2016-12-20] MEDS: ASPIRIN 325 MG TABLET PO SCH (10:00)
[2016-12-20] MEDS ORDERED: PT OWN MED DRAWER 7, Y5N ONE (12:43)
[2016-12-20 13:35] LABS: BASOPHIL 0.6 % (0-2.0); EOSINOPHIL 2.4 % (0-4.5); MCH 29.8 pg (25.7-33.7); MCHC 33.5 g/dl (32.0-35.9); MEAN CELL VOLUME 88.9 fl (80-96); MEAN PLT VOLUME 8.6 fl (7.5-11.1); NEUTROPHILS 75.8 % (42.8-82.8); PLATELET COUNT 179 K/MM3 (134-434); RDW 13.9 % (11.9-15.9); WHITE BLOOD COUNT 7.1 K/mm3 (4.0-10.8)
[2016-12-20 14:31] LABS: ALK PHOS 57 U/L (32-92); ANION GAP 6 (8-16); BILIRUBIN,TOTAL 0.5 mg/dl (0.2-1.0); CALCIUM 9.1 mg/dl (8.4-10.2); CO2 23 mmol/L (22-28); COCKROFT - GAULT 80.94; GLUCOSE,RANDOM 127 mg/dl (74-106); MAGNESIUM 1.9 mg/dL (1.8-2.4); SGOT/AST 27 U/L (10-42); SGPT/ALT 23 U/L (10-40)
[2016-12-20] MEDS: guaiFENesin 200 MG/10 ML 10 ML UNIT-DOSE CUPS PO PRN (20:13)
[2016-12-20] MEDS: NAPH,MB-DB/K PH,MBDB POWDER PACKET PO SCH (21:22)
[2016-12-20] MEDS: ATORVASTATIN CA 20 MG TABLET (FP) PO SCH (21:22)
[2016-12-21] MEDS ORDERED: PT OWN MED DRAWER 7, Y5N ONE ×2 (01:22→10:02)
[2016-12-21] MEDS: HEPARIN NA (PORCINE) 5,000 UNITS/ML 1ML VIAL SQ SCH ×2 (01:29→10:08)
[2016-12-21] MEDS: guaiFENesin 200 MG/10 ML 10 ML UNIT-DOSE CUPS PO PRN (01:29)
[2016-12-21] MEDS: MEROPENEM 500 MG VIAL (RESTRICTED TO ID) IVPB SCH ×2 (01:29→10:09)
[2016-12-21 05:49] VITALS: TEMP 98.5
[2016-12-21] MEDS: TAMSULOSIN HCL 0.4 MG CAP.ER.24H (FP) PO SCH (08:15)
--- NOTE | 2016-12-21 09:45 | PN ---
Progress Note, Physician History of Present Illness: Awake, alert OOB in chair No c/o dysuria/hematuria No c/o suprapubic or flank pain No recurrent fever/ chills + dry cough No chest pain / dyspnea Blood c/s (-) - Current Medication List Current Medications: Active Medications Acetaminophen (Tylenol -) 650 mg PO Q4H PRN PRN Reason: FEVER OR PAIN Last Admin: 12/19/16 21:36 Dose: 650 mg Aspirin (Asa -) 325 mg PO DAILY [facility] Last Admin: 12/20/16 10:00 Dose: 325 mg Atorvastatin Calcium (Lipitor -) 20 mg PO HS [facility] Last Admin: 12/20/16 21:22 Dose: 20 mg Guaifenesin (Robitussin -) 10 ml PO Q6H PRN PRN Reason: COUGH Last Admin: 12/21/16 01:29 Dose: 10 ml Heparin Sodium (Porcine) (Heparin -) 5,000 unit SQ Q8H-IV [facility] Last Admin: 12/21/16 01:29 Dose: 5,000 unit Meropenem (Merrem (Restricted To Id) -) 500 mg IVPB Q8H-IV [facility] Last Admin: 12/21/16 01:29 Dose: 500 mg Metoprolol Succinate (Toprol Xl -) 12.5 mg PO DAILY [facility] Last Admin: 12/20/16 10:00 Dose: 12.5 mg Ondansetron HCl (Zofran Injection) 4 mg IVPB Q6H PRN PRN Reason: NAUSEA Potassium Phos/Sodium Phos (Phos-Nak Packet -) 1 packet PO BID [facility] Last Admin: 12/20/16 21:22 Dose: 1 packet Tamsulosin HCl (Flomax -) 0.4 mg PO DAILY@0830 [facility] Last Admin: 12/21/16 08:15 Dose: 0.4 mg - Objective Vital Signs: Vital Signs Temperature 98.5 F 12/21/16 05:48 Pulse Rate 92 H 12/21/16 05:48 Respiratory Rate 19 12/21/16 05:48 Blood Pressure 110/75 12/21/16 05:48 O2 Sat by Pulse Oximetry (%) 96 12/21/16 05:48 Constitutional: Yes: No Distress Eyes: Yes: Conjunctiva Clear Cardiovascular: Yes: Regular Rate and Rhythm, S1, S2 Respiratory: Yes: CTA Bilaterally Gastrointestinal: Yes: Normal Bowel Sounds, Soft. No: Tenderness Genitourinary: Yes: CVA Tenderness - Left, CVA Tenderness - Right Edema: No Labs: CBC, BMP 12/20/16 13:10 12/20/16 13:10 Assessment/Plan UTI- ESBL S/P prostate biopsy Day # 5 meropenem Substitute Fosfomycin 3gm po q48h x 3 doses Outpatient followup
[2016-12-21] MEDS: ASPIRIN 325 MG TABLET PO SCH (10:09)
[2016-12-21] MEDS: NAPH,MB-DB/K PH,MBDB POWDER PACKET PO SCH (10:09)
[2016-12-21] MEDS: METOPROLOL SUCCINATE 25 MG TAB.SR.24H (FP) PO SCH (10:09)
--- NOTE | 2016-12-21 10:56 | DS ---
Physical Exam: SUBJECTIVE: Patient seen and examined, patient reports feeling well, denies any tactile fever, chest pain or shortness of breath. OBJECTIVE: Patient is a 66 year old male with BPH who is s/p TRUS prostate biopsy on 12/15. Pt noted that he had chills around 430am this morning which resolved after voiding and getting under the covers, but then later around 1030 felt tired and so he took his temperature and it was 103. Pt called his urologist who instructed him to go to the ED. Pt feeling better on exam but is repeatedly going to the bathroom every 15-20 minutes and only a little comes out and then he goes back to bed and feels as if he has to go again. ER course was notable for: (1) temp 103.1 (2) WBC 15.3, lactic acid 2.2 (3) tx with ceftriaxone Vital Signs Period Temp Pulse Resp BP Sys/Yi Pulse Ox Last 24 Hr 98.5 F-99.0 F 90-92 18-19 110-122/75-79 96-100 PHYSICAL EXAM GENERAL: The patient is awake, alert, and fully oriented, in no acute distress. HEAD: Normal with no signs of trauma. EYES: PERRL, extraocular movements intact, sclera anicteric, conjunctiva clear. No ptosis. ENT: Ears normal, nares patent, oropharynx clear without exudates, moist mucous membranes. NECK: Trachea midline, full range of motion, supple. LUNGS: Breath sounds equal, clear to auscultation bilaterally to apexes, no wheezes, crackles to left lower base, no accessory muscle use. HEART: Regular rate and rhythm, S1, S2 without murmur, rub or gallop. ABDOMEN: Soft, nontender, nondistended, normoactive bowel sounds, no guarding, no rebound, no hepatosplenomegaly, no masses. EXTREMITIES: 2+ pulses, warm, well-perfused, no edema. NEUROLOGICAL: Cranial nerves II through XII grossly intact. Normal speech, gait not observed. PSYCH: Normal mood, normal affect. SKIN: Warm, dry, normal turgor, no rashes or lesions noted LABS Laboratory Results - last 24 hr 12/20/16 12/20/16 13:10 13:10 WBC 7.1 D RBC 5.13 Hgb 15.3 Hct 45.6 MCV 88.9 MCHC 33.5 RDW 13.9 Plt Count 179 D MPV 8.6 Neutrophils % 75.8 Lymphocytes % 9.5 D Monocytes % 11.7 H Eosinophils % 2.4 D Basophils % 0.6 Sodium 137 Potassium 4.6 Chloride 108 H Carbon Dioxide 23 Anion Gap 6 L BUN 13 Creatinine 1.0 Creat Clearance w eGFR > 60 Random Glucose 127 H D Calcium 9.1 Phosphorus 2.0 L Magnesium 1.9 Total Bilirubin 0.5 D AST 27 D ALT 23 D Alkaline Phosphatase 57 Total Protein 6.0 L Albumin 3.0 L Microbiology 12/17/16 14:25 Blood - Peripheral Venous Blood Culture - Preliminary NO GROWTH OBTAINED AFTER 72 HOURS, INCUBATION TO CONTINUE FOR 2 DAYS. 12/17/16 14:15 Blood - Peripheral Venous Blood Culture - Preliminary NO GROWTH OBTAINED AFTER 72 HOURS, INCUBATION TO CONTINUE FOR 2 DAYS. 12/19/16 13:10 Blood - Peripheral Venous Blood Culture - Preliminary NO GROWTH OBTAINED AFTER 24 HOURS, INCUBATION TO CONTINUE FOR 4 DAYS. 12/19/16 12:50 Blood - Peripheral Venous Blood Culture - Preliminary NO GROWTH OBTAINED AFTER 24 HOURS, INCUBATION TO CONTINUE FOR 4 DAYS. 12/17/16 13:55 Urine - Urine Clean Catch Urine Culture - Final Escherichia Coli Esbl Triage Specialist HOSPITAL COURSE: Patient is a 66 y/o male, that was admitted from the emergency department for sepsis secondary to UTI. patient was started on -continue meropenem (12/17-) - blood cultures (12/17) NTD pending 2nd set of blood cultures - pt afebrile, wbc trending downward, pending am labs - ID Nikko, consulted and following urinary retenion - continue flomax - urology ([facility]) consulted and following 2. CARDS HLD -Continue Zocor CAD s/p [place] -Continue ASA HTN - continue metoprolol, B/P at goal Date of Admission:12/17/16 Date of Discharge: 12/21/16 Minutes to complete discharge: 45 Discharge Summary Reason For Visit: SEPSIS/UTI Current Active Problems Acute bacterial prostatitis (Acute) Sepsis (Acute) UTI (urinary tract infection) (Acute) Condition: Fair - Home Medications Comprehensive Discharge Medication List: Ambulatory Orders Aspirin [ASA -] 325 mg PO DAILY 07/07/13 Tamsulosin HCl [Flomax] 0.4 mg PO DAILY 07/07/13 Simvastatin 40 mg PO DAILY 11/08/16 Metoprolol Succinate [Toprol Xl -] 12.5 mg PO DAILY 12/18/16 - Discharge Referral Referred to [facility] Med P.C.: No
[2016-12-21] MEDS ORDERED: LORATADINE 10 MG TABLET PO SCH (11:00)
[2016-12-21] MEDS ORDERED: FLUTICASONE PROP 0.05% 16 GM NASAL SPRAY NS SCH (11:00)
[2016-12-21 12:42] VITALS: BP 110/70; PULSE 85
== END 2016-12-21 12:26 | disposition home or self-care (01) | DRG 862 ==
LOC: FER 13:48 → FM/S 18:17
PROVIDERS: ADMIT Internal Medicine; ATTEND Nurse Practitioner Family
DX: T81.4XXA Infection following a procedure, initial encounter (principal); A41.89 Other specified sepsis; R65.20 Severe sepsis without septic shock; N41.0 Acute prostatitis; N39.0 Urinary tract infection, site not specified; B96.20 Unspecified Escherichia coli [E. coli] as the cause of diseases classified elsewhere; R33.8 Other retention of urine; I10 Essential (primary) hypertension; E78.5 Hyperlipidemia, unspecified; I25.10 Atherosclerotic heart disease of native coronary artery without angina pectoris; I25.2 Old myocardial infarction; N40.0 Benign prostatic hyperplasia without lower urinary tract symptoms; Y83.8 Other surgical procedures as the cause of abnormal reaction of the patient, or of later complication, without mention of misadventure at the time of the procedure; Y92.89 Other specified places as the place of occurrence of the external cause; Z87.891 Personal history of nicotine dependence
CPT/HCPCS: 36415; 71020-TC; 80053; 81003; 81015; 83605; 83735; 84100; 85025; 87040; 87086; 87186; 93005; 99283-25; J1644

== ENCOUNTER 2019-06-04 09:18 | Inpatient (IN) | payer OTHER ==
--- NOTE | 2019-06-04 09:22 | PDOC ---
History of Present Illness - General Chief Complaint: Urinary Problem Stated Complaint: FEVER Time Seen by Provider: 06/04/19 09:22 - History of Present Illness Initial Comments: 06/04/19 11:16 68 y/o M hx of CAD s/p OK with stents placed, HLD, BPH presents to the ED with 3 days of chills, fever and urinary symptoms. 3 days ago he woke up with a fever and chills and on attempting to urinate produced very little urine despite having an increased urge to void. He takes aspirin daily and fever would subside afterwards but then return. He started taking a Z-aleyda that he had at home and has been doing so for the last 3 days. BIBEMS today because he felt lightheaded and almost passed out. He endorses burning on urination, frequency, occasional incontinence, dark brown urine. He denies any nausea, vomiting, diarrhea, falls or LOC. 06/04/19 11:19 Past History - Past Medical History Allergies/Adverse Reactions: Allergies Allergy/AdvReac Type Severity Reaction Status Date / Time No Known Allergies Allergy Verified 06/04/19 09:27 Home Medications: Ambulatory Orders Aspirin [ASA -] 325 mg PO DAILY 07/07/13 Tamsulosin HCl [Flomax -] 0.4 mg PO DAILY 07/07/13 Simvastatin 40 mg PO DAILY 11/08/16 Acetaminophen [Tylenol .Regular Strength -] 650 mg PO Q4H PRN #0 tablet Cardiac Disorders: Yes (OK in 06/2013) Diabetes: No GI Disorders: No Disorders: Yes (BPH) HTN: No Hypercholesterolemia: Yes - Surgical History Cardiac Surgery: Yes (cardiac cath,stents x 1) - Psycho Social/Smoking Cessation Hx Smoking History: Former smoker Have you smoked in the past 12 months: No If you are a former smoker, when did you quit?: 2002 Hx Alcohol Use: No Drug/Substance Use Hx: No Substance Use Type: None *Physical Exam - Physical Exam Comments: 06/04/19 10:42 PE: GENERAL: Awake, alert, and fully oriented, in no acute distress HEAD: No signs of trauma, normocephalic, atraumatic EYES: PERRLA, EOMI, sclera anicteric, conjunctiva clear ENT: Auricles normal inspection, hearing grossly normal, nares patent, oropharynx clear without exudates. Moist mucosa NECK: Normal ROM, supple, no lymphadenopathy, JVD, or masses LUNGS: No distress, speaks full sentences, clear to auscultation bilaterally HEART: Regular rate and rhythm, normal S1 and S2, no murmurs, rubs or gallops, peripheral pulses normal and equal bilaterally. ABDOMEN: Soft, nontender, normoactive bowel sounds. No guarding, no rebound. No masses EXTREMITIES : Normal inspection, Normal range of motion, no edema. No clubbing or cyanosis NEUROLOGICAL: Cranial nerves II through XII grossly intact. Normal speech, normal gait, no focal sensorimotor deficits SKIN: very warm to touch. Dry, normal turgor, no rashes or lesions noted ED Treatment Course - LABORATORY CBC & Chemistry Diagram: 06/04/19 10:15 06/04/19 10:15 Medical Decision Making - Medical Decision Making 06/04/19 10:42 Sepsis workup initiated. Pt is tachycardic with fever at 102F and presenting with urinary symptoms. Pt unable to void at this time given time to void spontaneously. However, if not will be straight cath 06/04/19 11:16 Urine sample collected and sent antibiotics given. (Cefipime 1gm IV), tylenol 1000mg IV for fever. NS at 30 cc/ kg 06/04/19 11:23 06/04/19 12:14 EKG: sinus tachy cardia, inferior infarct, age undetermined, anterior infarct age undetermined. white count elevated 14.8 UA + for leukocytec esterase, blood, nitrites. lactic acid pending. Message left with pcp's office for admission 06/04/19 12:24 06/04/19 12:57 microblogged for admission to hospitalist. 06/04/19 13:[address] Sifuentes's service. Discharge - Discharge Information Problems reviewed: Yes Clinical Impression/Diagnosis: Sepsis Qualifiers: Sepsis type: sepsis due to unspecified organism Sepsis acute organ dysfunction status: unspecified Qualified Code(s): A41.9 - Sepsis, unspecified organism Condition: Good - Follow up/Referral - Patient Discharge Instructions - Post Discharge Activity
--- NOTE | 2019-06-04 09:25 | PDOC ---
Attending Attestation - Resident Resident Name: Anup Saha - [facility] HPI: 06/04/19 10:57 Pt presents to the ED complaining of a three day history of generalized malaise , subjective fever and dysuria. Denies abodiminal pain, nausea or vomiting. Does complain of urinary urgency and frequency. Denies flank pain or urinary retention. - Physicial Exam PE: 06/04/19 10:58 Agree with resident exam. Patient is alert and oriented x 3 and in no acute distress. CV: rrr no murmurs. Pulm: CTA b/l. Abdomen, soft, non tender non distended without guarding or rebound. No CVA tenderness. Neuro: alert and oriented x 3. - Medical Decision Making 06/04/19 10:59 Pt presents to the ED complaining of generalized malaise and dysuria. Febrile in the ED. Symptoms are most consistent with UTI. Patient meets criteria for sepsis. Will treat with IV antibiotics, check blood and urine cultures and admit to medicine.
[2019-06-04] MEDS ORDERED: SODIUM CHLORIDE IV ONE (09:48)
[2019-06-04] MEDS ORDERED: CEFEPIME HCL/D5W 1 GM/50 ML BAG IVPB ONE (09:51)
[2019-06-04] MEDS ORDERED: ACETAMINOPHEN 1000 MG/100 ML VIAL (NON FORMULARY) IVPB ONE (10:40)
[2019-06-04 10:42] LABS: MCH 31.1 pg (25.7-33.7); MCHC 34.1 g/dl (32.0-35.9); MEAN CELL VOLUME 91.2 fl (80-96); MEAN PLT VOLUME 8.4 fl (7.5-11.1); PLATELET COUNT 157 K/MM3 (134-434); RBC 4.82 M/mm3 (4.00-5.60); RDW 13.4 % (11.9-15.9); WHITE BLOOD COUNT 14.8 K/mm3 (4.0-10.8)
[2019-06-04 10:45] LABS: ALBUMIN 2.9 g/dl (3.4-5.0); BILIRUBIN,TOTAL 0.8 mg/dl (0.2-1); CALCIUM 8.4 mg/dl (8.5-10); CREATININE 1.3 mg/dl (0.55-1.3); POTASSIUM 3.9 mmol/L (3.5-5.1); TOT PROT 5.8 g/dl (6.4-8.2)
[2019-06-04 10:48] LABS: ACTIVATED PTT 24.3 SECONDS (25.2-36.5)
[2019-06-04 10:59] LABS: INR 1.34 (0.82-1.09); PROTHROMBIN TIME (PATIENT) 14.9 SEC (10.2-13.0)
[2019-06-04] MEDS ORDERED: ACETAMINOPHEN INJECTION 100 ML IVPB ONE (11:15)
[2019-06-04 11:54] LABS: EPITHELIAL CELLS FEW /hpf
[2019-06-04 11:55] LABS: TRIPLE PHOSPHATE CRYSTAL FEW /hpf (NONE SEEN)
[2019-06-04 12:07] LABS: PLATELET ESTIMATE ADEQUATE
[2019-06-04] MEDS ORDERED: TAMSULOSIN HCL 0.4 MG CAP PO SCH (13:45)
[2019-06-04 15:25] VITALS: BMI 29.1
--- NOTE | 2019-06-04 15:49 | HP ---
CHIEF COMPLAINT: Fever, chills, dysuria PCP: Dr. Jae Izaguirre HISTORY OF PRESENT ILLNESS: 68 year-old male with a PMH significant for HTN, HLD, CAD s/p [place] s/p stents ( 2012), and BPH who presented to the ED for evaluation of shaking chills and dysuria. For the past two weeks patient has had decreased urine output and frequency. Two days ago, on Tuesday, patient awoke at 4:30am with shaking chills. He took aspirin and went back to bed. His symptoms of frequency and decreased UOP continued, and he had dysuria. He continued to take aspirin every 3 hours, and he also self-started a z-aleyda. On Tuesday night the chills returned and all symptoms continued until this morning when he called his PCP and told him to come to the ED. Patient has a h/o E.coli ESBL sepsis in 2016 following a prostate biopsy. ER course was notable for: (1) T 102, WBC 14.8k, p94, pyuria, lactic acid wnl (2) Cefepime x 1 dose (3) NS x 1.2L Recent Travel: No PAST MEDICAL HISTORY: Hypertension Hyperlipidemia Coronary artery disease BPH Severe sepsis secondary to E.coli ESBL UTI (2017) PAST SURGICAL HISTORY: Coronary artery stents 2013 Tonsillectomy age 10 Social History: Smoking: quit 2002, smoked 3+ppd since age 19 Alcohol: no Drugs: no Family history: mother age 64 - [place], h.p DM father age 69 - [place], h/o emphysema Allergies No Known Allergies Allergy (Verified 06/04/19 09:27) HOME MEDICATIONS: Home Medications Medication Instructions Recorded Aspirin [ASA -] 325 mg PO DAILY 07/07/13 Tamsulosin HCl [Flomax -] 0.4 mg PO DAILY 07/07/13 Simvastatin 40 mg PO DAILY 11/08/16 Acetaminophen [Tylenol .Regular 650 mg PO Q4H PRN #0 tablet 12/21/16 Strength -] REVIEW OF SYSTEMS CONSTITUTIONAL: +fever, chills Absent: fever, chills, diaphoresis, generalized weakness, malaise, loss of appetite, weight change HEENT: Absent: rhinorrhea, nasal congestion, throat pain, throat swelling, difficulty swallowing, mouth swelling, ear pain, eye pain, visual changes CARDIOVASCULAR: Absent: chest pain, syncope, palpitations, irregular heart rate, lightheadedness , peripheral edema RESPIRATORY: Absent: cough, shortness of breath, dyspnea with exertion, orthopnea, wheezing, stridor, hemoptysis GASTROINTESTINAL: Absent: abdominal pain, abdominal distension, nausea, vomiting, diarrhea, constipation, melena, hematochezia GENITOURINARY: +dysuria, frequency, decreased UOP Absent: dysuria, frequency, urgency, hesitancy, hematuria, flank pain, genital pain MUSCULOSKELETAL: Absent: myalgia, arthralgia, joint swelling, back pain, neck pain SKIN: Absent: rash, itching, pallor HEMATOLOGIC/IMMUNOLOGIC: Absent: easy bleeding, easy bruising, lymphadenopathy, frequent infections ENDOCRINE: Absent: unexplained weight gain, unexplained weight loss, heat intolerance, cold intolerance NEUROLOGIC: Absent: headache, focal weakness or paresthesias, dizziness, unsteady gait, seizure, mental status changes, bladder or bowel incontinence PSYCHIATRIC: Absent: anxiety, depression, suicidal or homicidal ideation, hallucinations. PHYSICAL EXAMINATION Vital Signs - 24 hr 06/04/19 06/04/19 06/04/19 09:21 11:46 12:50 Temperature 102.0 F H 100.7 F H Pulse Rate 125 H 94 H Pulse Rate [ 94 H Apical] Respiratory 16 16 16 Rate Blood Pressure 114/63 105/70 Blood Pressure 103/58 L [Left Arm] O2 Sat by Pulse 98 98 97 Oximetry (%) 06/04/19 06/04/19 06/04/19 13:15 14:00 15:13 Temperature 97.4 F L Pulse Rate 88 Pulse Rate [ 92 H 90 Apical] Respiratory 16 15 19 Rate Blood Pressure 115/65 Blood Pressure 101/57 L 105/64 [Left Arm] O2 Sat by Pulse 97 97 97 Oximetry (%) GENERAL: Awake, alert, and fully oriented, in no acute distress. HEAD: Normal with no signs of trauma. LUNGS: Breath sounds equal, clear to auscultation bilaterally. No wheezes, and no crackles. No accessory muscle use. HEART: Regular rate and rhythm, normal S1 and S2 ABDOMEN: Soft, nontender, not distended, normoactive bowel sounds, no guarding, no rebound UPPER EXTREMITIES: 2+ pulses, warm, well-perfused. No cyanosis. No clubbing. No peripheral edema. LOWER EXTREMITIES: 2+ pulses, warm, well-perfused. No calf tenderness. No peripheral edema. NEUROLOGICAL: Cranial nerves II-XII intact. Normal speech. SKIN: warm, dry Laboratory Results - last 24 hr 06/04/19 06/04/19 06/04/19 10:15 10:15 10:15 WBC 14.8 H RBC 4.82 Hgb 15.0 Hct 44.0 MCV 91.2 MCH 31.1 MCHC 34.1 RDW 13.4 Plt Count 157 MPV 8.4 Absolute Neuts (auto) 13.6 Neutrophils % No Result Required. Neutrophils % (Manual) 90.0 H Band Neutrophils % 2.0 Lymphocytes % No Result Required. Lymphocytes % (Manual) 4.0 L Monocytes % (Manual) 4 Platelet Estimate Adequate PT with INR 14.9 H INR 1.34 H PTT (Actin FS) 24.3 L Sodium Potassium Chloride Carbon Dioxide Anion Gap BUN Creatinine Est GFR (CKD-EPI)AfAm Est GFR (CKD-EPI)NonAf Random Glucose Lactic Acid Calcium Total Bilirubin AST ALT Alkaline Phosphatase Troponin I 0.01 Total Protein Albumin Urine Color Urine Appearance Urine pH Urine Protein Urine Glucose (UA) Urine Ketones Urine Blood Urine Nitrite Urine Bilirubin Urine Urobilinogen Ur Leukocyte Esterase Urine RBC Urine WBC Ur Transition Epith Cell Triple Phos Crystals Urine Bacteria 06/04/19 06/04/19 06/04/19 10:15 10:15 11:08 WBC RBC Hgb Hct MCV MCH MCHC RDW Plt Count MPV Absolute Neuts (auto) Neutrophils % Neutrophils % (Manual) Band Neutrophils % Lymphocytes % Lymphocytes % (Manual) Monocytes % (Manual) Platelet Estimate PT with INR INR PTT (Actin FS) Sodium 137 Potassium 3.9 Chloride 107 Carbon Dioxide 21 Anion Gap 9 BUN 25.0 H Creatinine 1.3 Est GFR (CKD-EPI)AfAm 64.52 Est GFR (CKD-EPI)NonAf 55.67 Random Glucose 134 H Lactic Acid 1.2 Calcium 8.4 L Total Bilirubin 0.8 AST 18 ALT 15 Alkaline Phosphatase 47 Troponin I Total Protein 5.8 L Albumin 2.9 L Urine Color Dark Urine Appearance Slightly Urine pH >= 9.0 H Urine Protein 3+ H Urine Glucose (UA) Negative Urine Ketones Trace Urine Blood Trace-intact Urine Nitrite Positive Urine Bilirubin 1+ H Urine Urobilinogen 1.0 Ur Leukocyte Esterase 1+ Urine RBC 0-2 Urine WBC 5-10 Ur Transition Epith Cell Few Triple Phos Crystals Few Urine Bacteria Many ASSESSMENT/PLAN 68 year-old male with a PMH significant for HTN, HLD, CAD s/p [place] s/p stents ( 2012), and BPH, admitted for sepsis likely secondary to a UTI. Sepsis likely secondary to UTI --T 102, WBC 14.8k, p94, pyuria, lactic acid wnl --previous episode of sepsis for E. coli ESBL, start meropenem pending culture results --IV fluids --ID consult requested BPH --06/04 renal: kidneys unremarkable; bladder wall thickening suggesting chronic outlet obstruction; markedly enlarged prostate; post-void residual 122ccs --continue tamsulosin --urology consult requested Hypertension --BP is borderline low --not on antihypertensives --IV fluids Hyperlipidemia --continue simvastatin Coronary artery disease --continue ASA, statin FEN Fluids: LR @ 125mL/hr Electrolytes: replete as indicated Nutrition: low sodium DVT prophylaxis: subq lovenox Dispo: continues to require inpatient care. Full code. Visit type - Emergency Visit Emergency Visit: Yes ED Registration Date: 06/04/19 Care time: The patient presented to the Emergency Department on the above date and was hospitalized for further evaluation of their emergent condition. - New Patient This patient is new to me today: Yes Date on this admission: 06/04/19 - Critical Care Critical Care patient: No
[2019-06-04] MEDS ORDERED: MEROPENEM 1 GM in DEXTROSE 5%-WATER 100 ML IVPB SCH (19:00)
[2019-06-04] MEDS ORDERED: LACTATED RINGERS SOLUTION 1,000 ML/1,000 ML INFUS.BAG IV STA (19:19)
[2019-06-04] MEDS ORDERED: LACTATED RINGERS SOLUTION 1,000 ML/1,000 ML INFUS.BAG IV SCH ×2 (19:30→23:33)
[2019-06-04] MEDS ORDERED: MEROPENEM 1 GM VIAL (RESTRICTED TO ID) IVPB ONE (19:50)
[2019-06-04] MEDS ORDERED: DEXTROSE 5%-WATER 100 ML IVPB ONE (19:50)
[2019-06-04] MEDS: MEROPENEM 1 GM in DEXTROSE 5%-WATER 100 ML IVPB SCH (19:59)
[2019-06-04] MEDS: ATORVASTATIN CA 20 MG TABLET (FP) PO SCH (20:59)
[2019-06-04] MEDS: TAMSULOSIN HCL 0.4 MG CAP PO SCH (20:59)
[2019-06-04] MEDS ORDERED: ASPIRIN 325 MG TABLET PO SCH (21:00)
[2019-06-04] MEDS: guaiFENesin/D-METHORPHAN HB 10 ML UNIT-DOSE CUPS PO PRN (23:15)
[2019-06-05] MEDS ORDERED: DEXTROSE 5%-WATER 100 ML IVPB ONE ×3 (01:44→17:25)
[2019-06-05] MEDS ORDERED: MEROPENEM 1 GM VIAL (RESTRICTED TO ID) IVPB ONE ×3 (01:44→17:26)
[2019-06-05] MEDS: MEROPENEM 1 GM in DEXTROSE 5%-WATER 100 ML IVPB SCH ×3 (02:06→17:32)
[2019-06-05 08:09] LABS: BASO % 0.2 % (0-2.0); EOS % 0.5 % (0-4.5); HEMOGLOBIN 12.9 GM/dl (11.7-16.9); LYMPH % 8.3 % (8-40); MCH 30.3 pg (25.7-33.7); MCHC 33.1 g/dl (32.0-35.9); MEAN CELL VOLUME 91.5 fl (80-96); MONO % 13.7 % (3.8-10.2); NEUT % 77.3 % (42.8-82.8); PLATELET COUNT 155 K/MM3 (134-434); RBC 4.26 M/mm3 (4.00-5.60); RDW 13.2 % (11.9-15.9)
[2019-06-05] MEDS: guaiFENesin/D-METHORPHAN HB 10 ML UNIT-DOSE CUPS PO PRN ×2 (08:12→16:26)
[2019-06-05 08:17] LABS: ALBUMIN 2.4 g/dl (3.4-5.0); BILIRUBIN,TOTAL 0.7 mg/dl (0.2-1); CALCIUM 7.6 mg/dl (8.5-10); CREATININE 0.9 mg/dl (0.55-1.3); MAGNESIUM 1.7 mg/dL (1.8-2.4); PHOSPHOROUS 1.4 mg/dl (2.5-4.9); POTASSIUM 3.4 mmol/L (3.5-5.1); TOT PROT 4.9 g/dl (6.4-8.2)
[2019-06-05] MEDS: ENOXAPARIN NA (PORCINE) 40 MG/0.4 ML DISP.SYRIN SQ SCH (09:37)
[2019-06-05] MEDS: ASPIRIN 325 MG TABLET PO SCH (09:37)
--- NOTE | 2019-06-05 09:45 | PN ---
Physical Exam: SUBJECTIVE: Patient seen and examined. Still with frequency, dysuria has resolved. OBJECTIVE: Vital Signs Period Temp Pulse Resp BP Sys/Yi Pulse Ox Last 24 Hr 97.4 F-100.7 F 82-94 15-19 101-147/57-79 96-100 GENERAL: Awake, alert, and fully oriented, in no acute distress. HEAD: Normal with no signs of trauma. LUNGS: Breath sounds equal, clear to auscultation bilaterally. No wheezes, and no crackles. No accessory muscle use. HEART: Regular rate and rhythm, normal S1 and S2 ABDOMEN: Soft, nontender, not distended, normoactive bowel sounds, no guarding, no rebound UPPER EXTREMITIES: 2+ pulses, warm, well-perfused. No cyanosis. No clubbing. No peripheral edema. LOWER EXTREMITIES: 2+ pulses, warm, well-perfused. No calf tenderness. No peripheral edema. NEUROLOGICAL: Cranial nerves II-XII intact. Normal speech. SKIN: warm, dry Laboratory Results - last 24 hr 06/04/19 06/04/19 06/04/19 10:15 10:15 10:15 WBC 14.8 H RBC 4.82 Hgb 15.0 Hct 44.0 MCV 91.2 MCH 31.1 MCHC 34.1 RDW 13.4 Plt Count 157 MPV 8.4 Absolute Neuts (auto) 13.6 Neutrophils % No Result Required. Neutrophils % (Manual) 90.0 H Band Neutrophils % 2.0 Lymphocytes % No Result Required. Lymphocytes % (Manual) 4.0 L Monocytes % Monocytes % (Manual) 4 Eosinophils % Basophils % Platelet Estimate Adequate PT with INR 14.9 H INR 1.34 H PTT (Actin FS) 24.3 L Sodium Potassium Chloride Carbon Dioxide Anion Gap BUN Creatinine Est GFR (CKD-EPI)AfAm Est GFR (CKD-EPI)NonAf Random Glucose Lactic Acid Calcium Phosphorus Magnesium Total Bilirubin AST ALT Alkaline Phosphatase Troponin I 0.01 Total Protein Albumin Urine Color Urine Appearance Urine pH Urine Protein Urine Glucose (UA) Urine Ketones Urine Blood Urine Nitrite Urine Bilirubin Urine Urobilinogen Ur Leukocyte Esterase Urine RBC Urine WBC Ur Transition Epith Cell Triple Phos Crystals Urine Bacteria 06/04/19 06/04/19 06/04/19 10:15 10:15 11:08 WBC RBC Hgb Hct MCV MCH MCHC RDW Plt Count MPV Absolute Neuts (auto) Neutrophils % Neutrophils % (Manual) Band Neutrophils % Lymphocytes % Lymphocytes % (Manual) Monocytes % Monocytes % (Manual) Eosinophils % Basophils % Platelet Estimate PT with INR INR PTT (Actin FS) Sodium 137 Potassium 3.9 Chloride 107 Carbon Dioxide 21 Anion Gap 9 BUN 25.0 H Creatinine 1.3 Est GFR (CKD-EPI)AfAm 64.52 Est GFR (CKD-EPI)NonAf 55.67 Random Glucose 134 H Lactic Acid 1.2 Calcium 8.4 L Phosphorus Magnesium Total Bilirubin 0.8 AST 18 ALT 15 Alkaline Phosphatase 47 Troponin I Total Protein 5.8 L Albumin 2.9 L Urine Color Dark Urine Appearance Slightly Urine pH >= 9.0 H Urine Protein 3+ H Urine Glucose (UA) Negative Urine Ketones Trace Urine Blood Trace-intact Urine Nitrite Positive Urine Bilirubin 1+ H Urine Urobilinogen 1.0 Ur Leukocyte Esterase 1+ Urine RBC 0-2 Urine WBC 5-10 Ur Transition Epith Cell Few Triple Phos Crystals Few Urine Bacteria Many 06/05/19 06/05/19 06/05/19 07:00 07:00 07:00 WBC 10.0 RBC 4.26 Hgb 12.9 Hct 39.0 MCV 91.5 MCH 30.3 MCHC 33.1 RDW 13.2 Plt Count 155 MPV 9.0 Absolute Neuts (auto) 7.8 Neutrophils % 77.3 Neutrophils % (Manual) Band Neutrophils % Lymphocytes % 8.3 Lymphocytes % (Manual) Monocytes % 13.7 H Monocytes % (Manual) Eosinophils % 0.5 Basophils % 0.2 Platelet Estimate PT with INR INR PTT (Actin FS) Sodium 135 L Potassium 3.4 L Chloride 110 H Carbon Dioxide 21 Anion Gap 4 L BUN 15.0 Creatinine 0.9 Est GFR (CKD-EPI)AfAm 100.65 Est GFR (CKD-EPI)NonAf 86.84 Random Glucose 106 Lactic Acid 0.8 Calcium 7.6 L Phosphorus 1.4 L Magnesium 1.7 L Total Bilirubin 0.7 AST 18 ALT 17 Alkaline Phosphatase 39 L Troponin I Total Protein 4.9 L Albumin 2.4 L Urine Color Urine Appearance Urine pH Urine Protein Urine Glucose (UA) Urine Ketones Urine Blood Urine Nitrite Urine Bilirubin Urine Urobilinogen Ur Leukocyte Esterase Urine RBC Urine WBC Ur Transition Epith Cell Triple Phos Crystals Urine Bacteria Active Medications Generic Name Dose Route Start Last Admin Trade Name Freq PRN Reason Stop Dose Admin Aspirin 325 mg 06/05/19 10:00 06/05/19 09:37 Asa - PO 325 mg DAILY GULSHAN Administration Atorvastatin Calcium 20 mg 06/04/19 22:00 06/04/19 20:59 Lipitor - PO 20 mg HS GULSHAN Administration Enoxaparin Sodium 40 mg 06/05/19 10:00 06/05/19 09:37 Lovenox - SQ 40 mg DAILY GULSHAN Administration Guaifenesin 10 ml 06/04/19 23:04 06/05/19 08:12 Robitussin Dm - PO 10 ml Q6H PRN Administration COUGH Meropenem 1 gm/ Dextrose 100 mls @ 200 mls/hr 06/04/19 19:00 IVPB Q8H-IV GULSHAN Meropenem 1 gm/ Dextrose 100 mls @ 200 mls/hr 06/04/19 19:00 06/05/19 09:38 IVPB 06/05/19 10:29 200 mls/hr Q8H-IV GULSHAN Administration Lactated Ringer's 1,000 ml in 1,000 mls @ 50 mls/hr 06/04/19 23:33 Lactated Ringers Solution IV ASDIR GULSHAN Tamsulosin HCl 0.4 mg 06/04/19 21:00 06/04/19 20:59 Flomax - PO 0.4 mg DAILY@2100 GULSHAN Administration ASSESSMENT/PLAN: 68 year-old male with a PMH significant for HTN, HLD, CAD s/p [place] s/p stents ( 2012), and BPH, admitted for sepsis likely secondary to a UTI. Sepsis likely secondary to UTI --T 102, WBC 14.8k, p94, pyuria, lactic acid wnl on admission --now afebrile, leukocytosis resolved --previous episode of sepsis for E. coli ESBL, continue meropenem (day #2) pending culture results --IV fluids --ID consult requested BPH --06/04 US renal: kidneys unremarkable; bladder wall thickening suggesting chronic outlet obstruction; markedly enlarged prostate; post-void residual 122ccs --continue tamsulosin --urology consult pending Hypertension --BP stable --not on antihypertensives Hyperlipidemia --continue simvastatin Coronary artery disease --continue ASA, statin FEN Fluids: PO intake adequate Electrolytes: replete as indicated Nutrition: low sodium DVT prophylaxis: subq lovenox Dispo: continues to require inpatient care. Full code. Visit type - Emergency Visit Emergency Visit: Yes ED Registration Date: 06/04/19 Care time: The patient presented to the Emergency Department on the above date and was hospitalized for further evaluation of their emergent condition. - New Patient This patient is new to me today: No - Critical Care Critical Care patient: No
[2019-06-05] MEDS ORDERED: PATIENT'S OWN MEDICATION (NON-FORMULARY) (Simvastatin [Simvastatin] 40 MG) PO SCH (10:00)
[2019-06-05] MEDS ORDERED: POTASSIUM CHLORIDE TABS 20 MEQ TABLET.ER (FP) PO SCH ×2 (10:15→12:30)
[2019-06-05] MEDS ORDERED: MAGNESIUM SULF 50% (8.12 MEQ/2 ML-1 GM VIAL) IVPB ONE (10:18)
[2019-06-05] MEDS ORDERED: MAGNESIUM SULFATE IN WATER 2 GM/50 ML IVPB IVPB ONE (10:45)
--- NOTE | 2019-06-05 10:45 | EKG ---
Test Reason : Blood Pressure : / mmHG Vent. Rate : 113 BPM Atrial Rate : 113 BPM P-R Int : 128 ms QRS Dur : 092 ms QT Int : 326 ms P-R-T Axes : 060 004 003 degrees QTc Int : 447 ms SINUS TACHYCARDIA INFERIOR INFARCT (CITED ON OR BEFORE 17-DEC-2016) ANTERIOR INFARCT (CITED ON OR BEFORE 17-DEC-2016) ABNORMAL ECG Confirmed by MD ANIVAL, LEIDY (2012) on 06/05/2019 10:44:39 AM Referred By: Confirmed By:LEIDY FLORIAN MD
[2019-06-05] MEDS: NAPH,MB-DB/K PH,MBDB POWDER PACKET PO SCH ×2 (14:28→21:27)
--- NOTE | 2019-06-05 14:55 | CON.ID ---
Consult Consult Specialty:: infectious diseases Referred by:: Cindi Reason for Consultation:: fever,chilss dysuria - History of Present Illness Chief Complaint: fever,shaking chills History of Present Illness: 68 year-old male with a PMH significant for HTN, HLD, CAD s/p [place] s/p stents ( 2012), and BPH admitted for evaluation of shaking chills and dysuria. For the past two weeks patient has had decreased urine output and frequency. Two days ago, on Tuesday, patient awoke at 4:30am with shaking chills. He took aspirin and went back to bed. His symptoms of frequency and decreased UOP continued, and he had dysuria. He continued to take aspirin every 3 hours, and he also self -started a z-aleyda. On Tuesday night the chills returned and all symptoms continued until this morning when he called his PCP and told him to come to the ED. Patient has a h/o E.coli ESBL sepsis in 2017 following a prostate biopsy. currently patient is stable and doing well - History Source History Provided By: Patient Limitations to Obtaining History: No Limitations - Alcohol/Substance Use Hx Alcohol Use: No - Smoking History Smoking history: Former smoker Have you smoked in the past 12 months: No If you are a former smoker, when did you quit?: 2002 Home Medications - Allergies Allergies/Adverse Reactions: Allergies Allergy/AdvReac Type Severity Reaction Status Date / Time No Known Allergies Allergy Verified 06/04/19 09:27 - Home Medications Home Medications: Ambulatory Orders Aspirin [ASA -] 325 mg PO DAILY 07/07/13 Tamsulosin HCl [Flomax -] 0.4 mg PO DAILY 07/07/13 Simvastatin 40 mg PO DAILY 11/08/16 Acetaminophen [Tylenol .Regular Strength -] 650 mg PO Q4H PRN #0 tablet Review of Systems - Review of Systems Constitutional: reports: Chills, Fever Eyes: reports: No Symptoms HENT: reports: No Symptoms Neck: reports: No Symptoms Cardiovascular: reports: No Symptoms Respiratory: reports: No Symptoms Gastrointestinal: reports: No Symptoms Genitourinary: reports: Dysuria Musculoskeletal: reports: No Symptoms Integumentary: reports: No Symptoms Neurological: reports: No Symptoms Endocrine: reports: No Symptoms Hematology/Lymphatic: reports: No Symptoms Psychiatric: reports: No Symptoms Physical Exam Vital Signs: Vital Signs Temperature 98.8 F 06/05/19 14:18 Pulse Rate 17 L 06/05/19 14:18 Respiratory Rate 16 06/05/19 14:18 Blood Pressure 117/68 06/05/19 14:18 O2 Sat by Pulse Oximetry (%) 98 06/05/19 14:18 Constitutional: Yes: Well Nourished, No Distress, Calm Cardiovascular: Yes: Regular Rate and Rhythm Respiratory: Yes: Regular, CTA Bilaterally Gastrointestinal: Yes: Normal Bowel Sounds, Soft Musculoskeletal: Yes: WNL Extremities: Yes: WNL Neurological: Yes: Alert, Oriented Psychiatric: Yes: Alert, Oriented Labs: CBC, BMP 06/05/19 07:00 06/05/19 07:00 Imaging - Results Chest X-ray: Report Reviewed, Image Reviewed Ultrasound: Report Reviewed, Image Reviewed Assessment/Plan 68 year-old male with a PMH significant for HTN, HLD, CAD s/p [place] s/p stents ( 2012), and BPH, admitted for sepsis likely secondary to a UTI. Sepsis likely secondary to UTI BPH Hypertension Hyperlipidemia Coronary artery disease plan continue current mgmt continue abx await for final reports rest as per the team
--- NOTE | 2019-06-05 19:06 | CONS ---
DATE OF CONSULTATION: 06/05/2019 The patient is a 68-year-old gentleman who was admitted approximately 48 hours ago with increased urinary frequency and shaking chills. The patient reports that prior to his admission, the patient had had increased difficulty approximately a day earlier and then had antibiotics at home with which he self-medicated. However, over the ensuring 24 hours, his urinary symptoms, including stranguria, burning and constant urgency, became worse. He then developed shaking chills and a fever. He came to the emergency room. Blood cultures as well as urine cultures were sent. The patient was then started on IV antibiotics. Since that time, the patient has been voiding a little bit better. He also continues to have urinary frequency. His white count has come down. Significant urologic history includes a biopsy that was performed in approximately 2014, following which the patient developed an infection. The patient reports that since that time, his PSA has been running around 8 . He has been on Tamsulosin and until the recent problem, claims to be voiding without difficulty. He general awakens once or twice a night and during the day voids with good control. Significant medical history includes a strong family history of prostate cancer. Physical exam revealed no bladder distention. Rectal exam revealed a rather large prostate with a prominent bump on the left lobe. In summary, we have a patient who clearly has bladder outlet obstruction, admitted with evidence of urinary infection, possibly prostatitis. Blood cultures are negative although they may be somewhat affected by the antibiotics the patient self-medicated with prior to his coming to the emergency room. Despite his elevated PSA, I would suggest that he be placed on finasteride 5 mg, one p.o. daily. Once the cultures are back, he can be switched if the bacteria are sensitive to an oral medication and be maintained on it for a full two-week course. Once he is discharged, arrangements should be made for him to have an MRI of the prostate. After that is performed, whether he is a candidate for a repeat biopsy, a TURP, or can just be maintained on medications can be decided. MD ZION KENNEDY/[id number]
[2019-06-05] MEDS: ATORVASTATIN CA 20 MG TABLET (FP) PO SCH (21:26)
[2019-06-05] MEDS: TAMSULOSIN HCL 0.4 MG CAP PO SCH (21:27)
[2019-06-05] MEDS ORDERED: ZOLPIDEM TARTRATE 5 MG TABLET PO ONE (21:52)
[2019-06-06] MEDS ORDERED: DEXTROSE 5%-WATER 100 ML IVPB ONE ×3 (01:23→17:55)
[2019-06-06] MEDS ORDERED: MEROPENEM 1 GM VIAL (RESTRICTED TO ID) IVPB ONE ×3 (01:24→17:56)
[2019-06-06] MEDS: MEROPENEM 1 GM in DEXTROSE 5%-WATER 100 ML IVPB SCH ×3 (01:29→18:01)
[2019-06-06] MEDS: NAPH,MB-DB/K PH,MBDB POWDER PACKET PO SCH ×3 (05:26→21:45)
[2019-06-06 07:38] LABS: BASO % 0.3 % (0-2.0); EOS % 4.1 % (0-4.5); HEMATOCRIT 41.1 % (35.4-49); HEMOGLOBIN 13.5 GM/dl (11.7-16.9); LYMPH % 13.3 % (8-40); MCH 30.1 pg (25.7-33.7); MCHC 32.9 g/dl (32.0-35.9); MEAN CELL VOLUME 91.6 fl (80-96); MEAN PLT VOLUME 8.5 fl (7.5-11.1); MONO % 14.2 % (3.8-10.2); NEUT % 68.1 % (42.8-82.8); PLATELET COUNT 189 K/MM3 (134-434); RBC 4.49 M/mm3 (4.00-5.60); RDW 13.4 % (11.9-15.9); WHITE BLOOD COUNT 7.7 K/mm3 (4.0-10.8)
[2019-06-06 07:49] LABS: ALBUMIN 2.5 g/dl (3.4-5.0); BILIRUBIN,TOTAL 0.6 mg/dl (0.2-1); CREATININE 0.9 mg/dl (0.55-1.3); POTASSIUM 3.9 mmol/L (3.5-5.1); TOT PROT 5.3 g/dl (6.4-8.2)
--- NOTE | 2019-06-06 09:37 | PN ---
Physical Exam: SUBJECTIVE: Patient seen and examined oob to chair. Feels better, voiding better. OBJECTIVE: Vital Signs Period Temp Pulse Resp BP Sys/Yi Pulse Ox Last 24 Hr 97.8 F-98.8 F 17-89 16-19 117-143/68-81 97-100 GENERAL: Awake, alert, and fully oriented, in no acute distress. HEAD: Normal with no signs of trauma. LUNGS: Breath sounds equal, clear to auscultation bilaterally. No wheezes, and no crackles. No accessory muscle use. HEART: Regular rate and rhythm, normal S1 and S2 ABDOMEN: Soft, nontender, not distended, normoactive bowel sounds, no guarding, no rebound UPPER EXTREMITIES: 2+ pulses, warm, well-perfused. No cyanosis. No clubbing. No peripheral edema. LOWER EXTREMITIES: 2+ pulses, warm, well-perfused. No calf tenderness. No peripheral edema. NEUROLOGICAL: Cranial nerves II-XII intact. Normal speech. SKIN: warm, dry Laboratory Results - last 24 hr 06/06/19 06/06/19 07:05 07:05 WBC 7.7 RBC 4.49 Hgb 13.5 Hct 41.1 MCV 91.6 MCH 30.1 MCHC 32.9 RDW 13.4 Plt Count 189 D MPV 8.5 Absolute Neuts (auto) 5.3 Neutrophils % 68.1 Lymphocytes % 13.3 D Monocytes % 14.2 H Eosinophils % 4.1 D Basophils % 0.3 Sodium 138 Potassium 3.9 Chloride 105 Carbon Dioxide 25 Anion Gap 8 BUN 13.0 Creatinine 0.9 Est GFR (CKD-EPI)AfAm 100.65 Est GFR (CKD-EPI)NonAf 86.84 Random Glucose 103 Calcium 8.0 L Magnesium 2.0 Total Bilirubin 0.6 AST 24 ALT 25 Alkaline Phosphatase 41 L Total Protein 5.3 L Albumin 2.5 L Active Medications Generic Name Dose Route Start Last Admin Trade Name Freq PRN Reason Stop Dose Admin Aspirin 325 mg 06/05/19 10:00 06/05/19 09:37 Asa - PO 325 mg DAILY GULSHAN Administration Atorvastatin Calcium 20 mg 06/04/19 22:00 06/05/19 21:26 Lipitor - PO 20 mg HS GULSHAN Administration Enoxaparin Sodium 40 mg 06/05/19 10:00 06/05/19 09:37 Lovenox - SQ 40 mg DAILY GULSHAN Administration Guaifenesin 10 ml 06/04/19 23:04 06/05/19 16:26 Robitussin Dm - PO 10 ml Q6H PRN Administration COUGH Meropenem 1 gm/ Dextrose 100 mls @ 200 mls/hr 06/05/19 18:00 06/06/19 01:29 IVPB 200 mls/hr Q8H-IV GULSHAN Administration Potassium Phos/Sodium Phos 1 packet 06/05/19 14:00 06/06/19 05:26 Phos-Nak Packet - PO 1 packet TID GULSHAN Administration Tamsulosin HCl 0.4 mg 06/04/19 21:00 06/05/19 21:27 Flomax - PO 0.4 mg DAILY@2100 GULSHAN Administration ASSESSMENT/PLAN: 68 year-old male with a PMH significant for HTN, HLD, CAD s/p [place] s/p stents ( 2012), and BPH, admitted for sepsis likely secondary to a UTI. Sepsis likely secondary to UTI --T 102, WBC 14.8k, p94, pyuria, lactic acid wnl on admission --now afebrile, leukocytosis resolved --previous episode of sepsis for E. coli ESBL, continue meropenem (day #3); initial urine culture contaminated, recollect --IV fluids --ID consult requested BPH --06/04 US renal: kidneys unremarkable; bladder wall thickening suggesting chronic outlet obstruction; markedly enlarged prostate; post-void residual 122ccs --seen and evaluated by urology Dr. Maldonado: continue tamsulosin, start finasteride; treat with antibiotics for 2 weeks; outpatient followup Hypertension --BP stable --not on antihypertensives Hyperlipidemia --continue simvastatin Coronary artery disease --continue ASA, statin FEN Fluids: PO intake adequate Electrolytes: replete as indicated Nutrition: low sodium DVT prophylaxis: subq lovenox Dispo: continues to require inpatient care. Full code. Visit type - Emergency Visit Emergency Visit: Yes ED Registration Date: 06/04/19 Care time: The patient presented to the Emergency Department on the above date and was hospitalized for further evaluation of their emergent condition. - New Patient This patient is new to me today: No - Critical Care Critical Care patient: No
[2019-06-06] MEDS: ASPIRIN 325 MG TABLET PO SCH (10:17)
[2019-06-06] MEDS: ENOXAPARIN NA (PORCINE) 40 MG/0.4 ML DISP.SYRIN SQ SCH (10:17)
[2019-06-06 11:39] LABS: EPITHELIAL CELLS RARE /hpf
--- NOTE | 2019-06-06 14:34 | PN ---
Progress Note, Physician History of Present Illness: stable no new issues - Current Medication List Current Medications: Active Medications Aspirin (Asa -) 325 mg PO DAILY [facility] Last Admin: 06/06/19 10:17 Dose: 325 mg Atorvastatin Calcium (Lipitor -) 20 mg PO HS [facility] Last Admin: 06/05/19 21:26 Dose: 20 mg Enoxaparin Sodium (Lovenox -) 40 mg SQ DAILY [facility] Last Admin: 06/06/19 10:17 Dose: 40 mg Guaifenesin (Robitussin Dm -) 10 ml PO Q6H PRN PRN Reason: COUGH Last Admin: 06/05/19 16:26 Dose: 10 ml Meropenem 1 gm/ Dextrose 100 mls @ 200 mls/hr IVPB Q8H-IV [facility] Last Admin: 06/06/19 10:16 Dose: 200 mls/hr Potassium Phos/Sodium Phos (Phos-Nak Packet -) 1 packet PO TID [facility] Last Admin: 06/06/19 05:26 Dose: 1 packet Tamsulosin HCl (Flomax -) 0.4 mg PO DAILY@2100 [facility] Last Admin: 06/05/19 21:27 Dose: 0.4 mg - Objective Vital Signs: Vital Signs Temperature 98.3 F 06/06/19 09:05 Pulse Rate 89 06/06/19 09:05 Respiratory Rate 18 06/06/19 09:05 Blood Pressure 138/70 06/06/19 09:05 O2 Sat by Pulse Oximetry (%) 97 06/06/19 09:05 Constitutional: Yes: No Distress, Calm Cardiovascular: Yes: S1, S2 Respiratory: Yes: Regular, CTA Bilaterally Musculoskeletal: Yes: WNL Extremities: Yes: WNL Neurological: Yes: Alert, Oriented Psychiatric: Yes: Alert, Oriented Labs: CBC, BMP 06/06/19 07:05 06/06/19 07:05 INR, PTT INR 1.34 (0.82-1.09) H 06/04/19 10:15 Assessment/Plan 68 year-old male with a PMH significant for HTN, HLD, CAD s/p SD s/p stents ( 2012), and BPH, admitted for sepsis likely secondary to a UTI. Sepsis likely secondary to UTI BPH Hypertension Hyperlipidemia Coronary artery disease plan continue current mgmt continue abx await for final reports rest as per the team
[2019-06-06] MEDS: TAMSULOSIN HCL 0.4 MG CAP PO SCH (21:44)
[2019-06-06] MEDS: ATORVASTATIN CA 20 MG TABLET (FP) PO SCH (21:45)
[2019-06-07] MEDS ORDERED: MEROPENEM 1 GM VIAL (RESTRICTED TO ID) IVPB ONE ×2 (00:35→07:49)
[2019-06-07] MEDS ORDERED: DEXTROSE 5%-WATER 100 ML IVPB ONE ×2 (00:35→07:49)
[2019-06-07] MEDS: MEROPENEM 1 GM in DEXTROSE 5%-WATER 100 ML IVPB SCH ×2 (01:40→09:12)
[2019-06-07] MEDS: NAPH,MB-DB/K PH,MBDB POWDER PACKET PO SCH ×2 (06:28→14:25)
--- NOTE | 2019-06-07 08:55 | PN ---
Physical Exam: SUBJECTIVE: Patient seen and examined. Voiding freely, no dysuria. Feels well. Has been OBJECTIVE: Vital Signs Period Temp Pulse Resp BP Sys/Yi Pulse Ox Last 24 Hr 97.7 F-98.6 F 62-89 17-19 124-151/61-84 97-100 GENERAL: Awake, alert, and fully oriented, in no acute distress. HEAD: Normal with no signs of trauma. LUNGS: Breath sounds equal, clear to auscultation bilaterally. No wheezes, and no crackles. No accessory muscle use. HEART: Regular rate and rhythm, normal S1 and S2 ABDOMEN: Soft, nontender, not distended, normoactive bowel sounds, no guarding, no rebound UPPER EXTREMITIES: 2+ pulses, warm, well-perfused. No cyanosis. No clubbing. No peripheral edema. LOWER EXTREMITIES: 2+ pulses, warm, well-perfused. No calf tenderness. No peripheral edema. NEUROLOGICAL: Cranial nerves II-XII intact. Normal speech. SKIN: warm, dry Laboratory Results - last 24 hr 06/06/19 06/06/19 06/06/19 07:05 09:10 17:30 Prostate Specific Ag 46.30 H Urine Color Yellow Urine Appearance Clear Urine pH 6.0 D Urine Protein Trace Urine Glucose (UA) Negative Urine Ketones Trace Urine Blood 1+ H Urine Nitrite Negative Urine Bilirubin Negative Urine Urobilinogen 1.0 Ur Leukocyte Esterase 1+ Urine RBC 2-5 Urine WBC 5-10 Ur Transition Epith Cell Rare Urine Bacteria Few Stool Occult Blood Negative Active Medications Generic Name Dose Route Start Last Admin Trade Name Freq PRN Reason Stop Dose Admin Aspirin 325 mg 06/05/19 10:00 06/06/19 10:17 Asa - PO 325 mg DAILY [facility] Administration Atorvastatin Calcium 20 mg 06/04/19 22:00 06/06/19 21:45 Lipitor - PO 20 mg HS [facility] Administration Enoxaparin Sodium 40 mg 06/05/19 10:00 06/06/19 10:17 Lovenox - SQ 40 mg DAILY [facility] Administration Guaifenesin 10 ml 06/04/19 23:04 06/05/19 16:26 Robitussin Dm - PO 10 ml Q6H PRN Administration COUGH Meropenem 1 gm/ Dextrose 100 mls @ 200 mls/hr 06/05/19 18:00 06/07/19 01:40 IVPB 200 mls/hr Q8H-IV [facility] Administration Potassium Phos/Sodium Phos 1 packet 06/05/19 14:00 06/07/19 06:28 Phos-Nak Packet - PO 1 packet TID [facility] Administration Tamsulosin HCl 0.4 mg 06/04/19 21:00 06/06/19 21:44 Flomax - PO 0.4 mg DAILY@2100 [facility] Administration ASSESSMENT/PLAN 68 year-old male with a PMH significant for HTN, HLD, CAD s/p HI s/p stents ( 2012), and BPH, admitted for sepsis likely secondary to a UTI. Sepsis likely secondary to UTI --T 102, WBC 14.8k, p94, pyuria, lactic acid wnl on admission --now afebrile, leukocytosis resolved --previous episode of sepsis for E. 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 Maldonado: continue tamsulosin, start finasteride; treat with antibiotics for 2 weeks; outpatient followup Hypertension --BP stable --not on antihypertensives Hyperlipidemia --continue simvastatin Coronary artery disease --continue ASA, statin FEN Fluids: PO intake adequate Electrolytes: replete as indicated Nutrition: low sodium DVT prophylaxis: subq lovenox Dispo: continues to require inpatient care. Full code. Visit type - Emergency Visit Emergency Visit: Yes ED Registration Date: 06/04/19 Care time: The patient presented to the Emergency Department on the above date and was hospitalized for further evaluation of their emergent condition. - New Patient This patient is new to me today: No - Critical Care Critical Care patient: No
[2019-06-07] MEDS: ENOXAPARIN NA (PORCINE) 40 MG/0.4 ML DISP.SYRIN SQ SCH (09:11)
[2019-06-07] MEDS: ASPIRIN 325 MG TABLET PO SCH (09:11)
[2019-06-07] MEDS: FINASTERIDE 5 MG TABLET (FP) PO SCH (15:12)
--- NOTE | 2019-06-07 15:23 | PN ---
Progress Note, Physician History of Present Illness: patient stable no new issues dirrhoea cdiff send - Current Medication List Current Medications: Active Medications Aspirin (Asa -) 325 mg PO DAILY [facility] Last Admin: 06/07/19 09:11 Dose: 325 mg Atorvastatin Calcium (Lipitor -) 20 mg PO HS [facility] Last Admin: 06/06/19 21:45 Dose: 20 mg Enoxaparin Sodium (Lovenox -) 40 mg SQ DAILY [facility] Last Admin: 06/07/19 09:11 Dose: 40 mg Finasteride (Proscar -) 5 mg PO DAILY [facility] Last Admin: 06/07/19 15:12 Dose: 5 mg Guaifenesin (Robitussin Dm -) 10 ml PO Q6H PRN PRN Reason: COUGH Last Admin: 06/05/19 16:26 Dose: 10 ml Meropenem 1 gm/ Dextrose 100 mls @ 200 mls/hr IVPB Q8H-IV [facility] Last Admin: 06/07/19 09:12 Dose: 200 mls/hr Potassium Phos/Sodium Phos (Phos-Nak Packet -) 1 packet PO TID [facility] Last Admin: 06/07/19 14:25 Dose: 1 packet Tamsulosin HCl (Flomax -) 0.4 mg PO DAILY@2100 [facility] Last Admin: 06/06/19 21:44 Dose: 0.4 mg - Objective Vital Signs: Vital Signs Temperature 97.9 F 06/07/19 14:09 Pulse Rate 94 H 06/07/19 14:09 Respiratory Rate 18 06/07/19 14:09 Blood Pressure 129/82 06/07/19 14:09 O2 Sat by Pulse Oximetry (%) 100 06/07/19 14:09 Constitutional: Yes: No Distress, Calm Cardiovascular: Yes: S1, S2 Respiratory: Yes: Regular, CTA Bilaterally Gastrointestinal: Yes: Normal Bowel Sounds, Soft Musculoskeletal: Yes: WNL Extremities: Yes: WNL Neurological: Yes: Alert, Oriented Psychiatric: Yes: Alert, Oriented Labs: CBC, BMP 06/06/19 07:05 06/06/19 07:05 INR, PTT INR 1.34 (0.82-1.09) H 06/04/19 10:15 Assessment/Plan 68 year-old male with a PMH significant for HTN, HLD, CAD s/p CA s/p stents ( 2013), and BPH, admitted for sepsis likely secondary to a UTI. Sepsis likely secondary to UTI BPH Hypertension Hyperlipidemia Coronary artery disease plan continue current mgmt will hold the abx rest as per the team
[2019-06-07] MEDS: TAMSULOSIN HCL 0.4 MG CAP PO SCH (21:22)
[2019-06-07] MEDS: ATORVASTATIN CA 20 MG TABLET (FP) PO SCH (21:22)
[2019-06-08] MEDS: ENOXAPARIN NA (PORCINE) 40 MG/0.4 ML DISP.SYRIN SQ SCH ×2 (09:34→09:40)
[2019-06-08] MEDS: FINASTERIDE 5 MG TABLET (FP) PO SCH (09:39)
[2019-06-08] MEDS: ASPIRIN 325 MG TABLET PO SCH (09:39)
[2019-06-08 13:50] VITALS: BP 112/63; PULSE 86; TEMP 98.7
--- NOTE | 2019-06-08 14:13 | DS ---
Physical Exam: SUBJECTIVE: Patient seen and examined OBJECTIVE: Vital Signs Period Temp Pulse Resp BP Sys/Yi Pulse Ox Last 24 Hr 97.7 F-98.7 F 57-86 18-19 112-143/59-92 96-100 PHYSICAL EXAM GENERAL: The patient is awake, alert, and fully oriented, in no acute distress. HEAD: Normal with no signs of trauma. EYES: PERRL, extraocular movements intact, sclera anicteric, conjunctiva clear. ENT: Ears normal, nares patent, oropharynx clear without exudates, moist mucous membranes. NECK: Trachea midline, full range of motion, supple. LUNGS: Breath sounds equal, clear to auscultation bilaterally, no wheezes, no crackles, no accessory muscle use. HEART: Regular rate and rhythm, S1, S2 without murmur, rub or gallop. ABDOMEN: Soft, nontender, nondistended, normoactive bowel sounds, no guarding, no rebound, no hepatosplenomegaly, no masses. EXTREMITIES: 2+ pulses, warm, well-perfused, no edema. NEUROLOGICAL: Cranial nerves II through XII grossly intact. Normal speech, gait not observed. PSYCH: Normal mood, normal affect. SKIN: Warm, dry, normal turgor, no rashes or lesions noted. LABS HOSPITAL COURSE: Date of Admission:06/04/19 Date of Discharge: 06/08/19 Discharge Summary Problems reviewed: Yes Reason For Visit: URINARY TRACT INFECTION, SEPSIS Condition: Improved - Instructions Diet, Activity, Other Instructions: Two prescriptions have been sent to your pharmacy, one for levofloxacin ( antibiotic) and another for finasteride. Take these medications as prescribed. It is important you follow up with a urologist as soon as you finish the antibiotic. If you would like to follow up with Dr. Pepe Maldonado, his contact information is enclosed. Return to the emergency department for any new or worsening symptoms. Referrals: Ventura Izaguirre MD [Primary Care Provider] - Pepe Maldonado MD [Staff Physician] - Disposition: HOME - Home Medications Comprehensive Discharge Medication List: Ambulatory Orders Aspirin [ASA -] 325 mg PO DAILY 07/07/13 Tamsulosin HCl [Flomax -] 0.4 mg PO DAILY 07/07/13 Simvastatin 40 mg PO DAILY 11/08/16 Acetaminophen [Tylenol .Regular Strength -] 650 mg PO Q4H PRN #0 tablet Finasteride [Proscar -] 5 mg PO DAILY #30 tablet 06/08/19 levoFLOXacin [Levaquin -] 500 mg PO DAILY #8 tablet 06/08/19
== END 2019-06-08 14:21 | disposition home or self-care (01) | DRG 872 ==
LOC: FER 09:18 → FM/S 12:57
PROVIDERS: ADMIT Internal Medicine; ATTEND Nurse Practitioner Acute Care
DX: A41.89 Other specified sepsis (principal); N39.0 Urinary tract infection, site not specified; N40.0 Benign prostatic hyperplasia without lower urinary tract symptoms; I10 Essential (primary) hypertension; E78.5 Hyperlipidemia, unspecified; I25.10 Atherosclerotic heart disease of native coronary artery without angina pectoris; Z98.61 Coronary angioplasty status
CPT/HCPCS: 36415; 71045-TC-FY; 76775-TC; 76856-TC; 80053; 81003; 81015; 82272; 83605; 83735; 84100; 84153; 84484; 85025; 85610; 85730; 87040; 87045; 87046; 87086; 87324; 87449; 87493; 93005; 97116-GP; 97161-GP; 99283-25; J0131; J7030

== ENCOUNTER 2023-02-22 06:36 | Inpatient (IN) | payer OTHER ==
[2023-02-22 06:39] VITALS: BMI 28.2
[2023-02-22 07:21] LABS: BASO % 1.3 % (0-2.0); EOS % 7.4 % (0-4.5); HEMATOCRIT 46.8 % (35.4-49); HEMOGLOBIN 15.7 GM/dL (11.7-16.9); MCH 29.5 pg (25.7-33.7); MCHC 33.6 g/dl (32.0-35.9); MEAN CELL VOLUME 87.6 fl (80-96); MEAN PLT VOLUME 8.2 fl (7.5-11.1); MONO % 8.5 % (3.8-10.2); NEUT % 66.8 % (42.8-82.8); PLATELET COUNT 200 10^3/uL (134-434); RBC 5.34 M/mm3 (4.00-5.60); RDW 14.3 % (11.9-15.9); WHITE BLOOD COUNT 7.6 K/mm3 (4.0-10.0)
[2023-02-22 07:29] LABS: INR 1.06 (0.83-1.09); PROTHROMBIN TIME (PATIENT) 12.3 SEC (9.7-13.0)
[2023-02-22 07:32] LABS: ACTIVATED PTT 27.8 SECONDS (25.2-36.5)
[2023-02-22 07:35] LABS: CALCIUM 8.7 mg/dL (8.5-10.1)
[2023-02-22 07:37] LABS: ALBUMIN 3.3 g/dl (3.4-5.0); BLOOD UREA NITROGEN 18.1 mg/dL (7-18)
[2023-02-22 07:39] LABS: CREATININE 1.1 mg/dL (0.55-1.3)
[2023-02-22 07:40] LABS: BILIRUBIN,TOTAL 0.5 mg/dL (0.2-1); TOT PROT 6.2 g/dl (6.4-8.2)
[2023-02-22 07:44] LABS: N-TERMINAL BNP 908.2 pg/ml (5-125)
[2023-02-22] MEDS ORDERED: ASPIRIN 81 MG CHEWABLE TABLETS PO SCH (10:00)
[2023-02-22] MEDS ORDERED: FINASTERIDE 5 MG TABLET (FP) PO SCH (10:00)
[2023-02-22] MEDS ORDERED: TAMSULOSIN HCL 0.4 MG CAP PO SCH (10:00)
[2023-02-22] MEDS ORDERED: REGADENOSON 0.4 MG/5 ML PRE-FILLED SYRINGE IVPUSH ONE ×2 (10:03→10:45)
[2023-02-22] MEDS ORDERED: TAMSULOSIN HCL 0.4 MG CAP ONE (12:18)
[2023-02-22] MEDS ORDERED: ASPIRIN 81 MG CHEWABLE TABLETS ONE (12:18)
[2023-02-22 15:24] VITALS: BP 137/85; PULSE 99; RESP 18; TEMP 97.8
[2023-02-22] MEDS ORDERED: ATORVASTATIN CA 20 MG TABLET (FP) PO SCH (22:00)
[2023-02-23] MEDS ORDERED: ENOXAPARIN NA (PORCINE) 40 MG/0.4 ML DISP.SYRIN SQ SCH (10:00)
== END 2023-02-22 15:30 | disposition home or self-care (01) | DRG 181 ==
LOC: JER 06:36 → JERBED 08:02
PROVIDERS: ADMIT Internal Medicine; ATTEND Internal Medicine
DX: C34.12 Malignant neoplasm of upper lobe, left bronchus or lung (principal); C77.3 Secondary and unspecified malignant neoplasm of axilla and upper limb lymph nodes; I25.2 Old myocardial infarction; J44.9 Chronic obstructive pulmonary disease, unspecified; N40.0 Benign prostatic hyperplasia without lower urinary tract symptoms; E78.00 Pure hypercholesterolemia, unspecified; I25.119 Atherosclerotic heart disease of native coronary artery with unspecified angina pectoris; Z95.5 Presence of coronary angioplasty implant and graft; Z87.891 Personal history of nicotine dependence
CPT/HCPCS: 36415; 71045-TC-FY; 71250-TC; 78452-TC; 80053; 80061; 83036; 83880; 84443; 84484; 85025; 85610; 85730; 93005; 93010; 93017; 93306-TC; 99285-25; A9502; J2785

== ENCOUNTER 2023-03-22 03:52 | Day surgery (SDC) | payer OTHER ==
[2023-03-18 15:08] VITALS: BMI 29.0
[2023-03-22 08:19] LABS: INR 0.93 (0.83-1.09); PROTHROMBIN TIME (PATIENT) 10.8 SEC (9.7-13.0)
[2023-03-22 08:20] LABS: BASO % 0.8 % (0-2.0); EOS % 7.2 % (0-4.5); LYMPH % 16.9 % (8-40); MCH 28.9 pg (25.7-33.7); MCHC 32.5 g/dl (32.0-35.9); MEAN CELL VOLUME 88.7 fl (80-96); MEAN PLT VOLUME 9.1 fl (7.5-11.1); MONO % 9.7 % (3.8-10.2); NEUT % 65.4 % (42.8-82.8); PLATELET COUNT 207 10^3/uL (134-434); RBC 5.18 M/mm3 (4.00-5.60); RDW 15.2 % (11.9-15.9); WHITE BLOOD COUNT 8.2 K/mm3 (4.0-10.0)
[2023-03-22 13:28] VITALS: RESP 20
[2023-03-22 13:44] VITALS: TEMP 97.8
[2023-03-22 17:58] VITALS: BP 124/72; PULSE 88
== END 2023-03-22 17:15 | disposition home or self-care (01) ==
LOC: JRADIR 03:52
PROVIDERS: ATTEND Student in an Organized Health Care Education/Training Program
PROC: 0BBG3ZX Excision of Left Upper Lung Lobe, Percutaneous Approach, Diagnostic (ICD-10-PCS; principal; 2023-03-22)
DX: C34.12 Malignant neoplasm of upper lobe, left bronchus or lung (principal)
CPT/HCPCS: 32408; 36415; 71046-TC-FY; 85025; 85610; 88305-TC; 88341-TC; 88342-TC

== ENCOUNTER 2023-04-26 13:20 | Day surgery (SDC) | payer OTHER ==
[2023-04-26 11:54] LABS: BASO % 0.8 % (0-2.0); EOS % 5.2 % (0-4.5); HEMATOCRIT 44.2 % (35.4-49); HEMOGLOBIN 15.3 GM/dL (11.7-16.9); LYMPH % 11.6 % (8-40); MCH 30.1 pg (25.7-33.7); MCHC 34.5 g/dl (32.0-35.9); MEAN CELL VOLUME 87.1 fl (80-96); MEAN PLT VOLUME 8.1 fl (7.5-11.1); MONO % 9.5 % (3.8-10.2); NEUT % 72.9 % (42.8-82.8); PLATELET COUNT 213 10^3/uL (134-434); RBC 5.08 M/mm3 (4.00-5.60); RDW 14.9 % (11.9-15.9); WHITE BLOOD COUNT 7.6 K/mm3 (4.0-10.0)
[2023-04-26 12:13] LABS: POTASSIUM 4.2 mmol/L (3.5-5.1)
[2023-04-26 12:15] LABS: ALBUMIN 3.5 g/dl (3.4-5.0); CALCIUM 8.8 mg/dL (8.5-10.1); MAGNESIUM 2.1 mg/dL (1.8-2.4)
[2023-04-26 12:16] LABS: BLOOD UREA NITROGEN 13.6 mg/dL (7-18)
[2023-04-26 12:18] LABS: BILIRUBIN,DIRECT 0.1 mg/dL (0.0-0.2); CREATININE 1.1 mg/dL (0.55-1.3)
[2023-04-26 12:20] LABS: BILIRUBIN,TOTAL 0.4 mg/dL (0.2-1); TOT PROT 6.5 g/dl (6.4-8.2)
[~2023-04-26 13:20] MED LIST: CARBOPLATIN IVPB ONE; CYANOCOBALAMIN (VITAMIN B-12) 1000 MCG/1 ML VIAL IM ONE; DEXAMETHASONE SODIUM PHOSPHATE 10 MG in DEXTROSE 5%-WATER - 50 ML IVPB ONE; PALONOSETRON HCL 0.25 MG/5 ML VIAL IVPUSH ONE; PEMETREXED DISODIUM IVPB ONE; SODIUM CHLORIDE 250 ML IV ONE; SODIUM CHLORIDE IVPB ONE
[2023-04-26 15:50] VITALS: BP 143/77; PULSE 71; RESP 20; TEMP 97.7
== END 2023-04-26 14:30 | disposition home or self-care (01) ==
LOC: J7W 13:20 → JONCCHEMO 13:20
PROVIDERS: ATTEND Internal Medicine Hematology & Oncology
DX: Z51.11 Encounter for antineoplastic chemotherapy (principal); C34.90 Malignant neoplasm of unspecified part of unspecified bronchus or lung
CPT/HCPCS: 36415; 80048; 80076; 83735; 85025; 96375; 96411; 96413; J2469; J9305

== ENCOUNTER 2023-04-27 10:56 | Day surgery (SDC) | payer OTHER ==
[~2023-04-27 10:56] MED LIST changes: -CARBOPLATIN IVPB ONE; -CYANOCOBALAMIN (VITAMIN B-12) 1000 MCG/1 ML VIAL IM ONE; -DEXAMETHASONE SODIUM PHOSPHATE 10 MG in DEXTROSE 5%-WATER - 50 ML IVPB ONE; +DEXTROSE 5%-NORMAL SALINE 500 ML IV ONE; -PALONOSETRON HCL 0.25 MG/5 ML VIAL IVPUSH ONE; +PEGFILGRASTIM-CBQV (UDENYCA) 6 MG/0.6 ML SYRINGE SQ ONE; -PEMETREXED DISODIUM IVPB ONE; -SODIUM CHLORIDE 250 ML IV ONE; -SODIUM CHLORIDE IVPB ONE
[2023-04-27 17:50] VITALS: BP 104/53; PULSE 67; RESP 18; TEMP 97.7
== END 2023-04-27 13:40 | disposition home or self-care (01) ==
LOC: J7W 10:56 → JONCCHEMO 10:56
PROVIDERS: ATTEND Internal Medicine Hematology & Oncology
PROC: 3E013GC Introduction of Other Therapeutic Substance into Subcutaneous Tissue, Percutaneous Approach (ICD-10-PCS; principal; 2023-04-27)
PROC: 3E0337Z Introduction of Electrolytic and Water Balance Substance into Peripheral Vein, Percutaneous Approach (ICD-10-PCS; 2023-04-27)
DX: C34.90 Malignant neoplasm of unspecified part of unspecified bronchus or lung (principal); Z76.89 Persons encountering health services in other specified circumstances
CPT/HCPCS: 96360; 96372; Q5111

== ENCOUNTER 2023-06-07 11:05 | Day surgery (SDC) | payer OTHER ==
[~2023-06-07 11:05] MED LIST changes: +CARBOPLATIN IVPB ONE; +CYANOCOBALAMIN (VITAMIN B-12) 1000 MCG/1 ML VIAL IM ONE; +DEXAMETHASONE SODIUM PHOSPHATE 10 MG in DEXTROSE 5%-WATER - 50 ML IVPB ONE; -DEXTROSE 5%-NORMAL SALINE 500 ML IV ONE; +PALONOSETRON HCL 0.25 MG/5 ML VIAL IVPUSH ONE; -PEGFILGRASTIM-CBQV (UDENYCA) 6 MG/0.6 ML SYRINGE SQ ONE; +PEMETREXED DISODIUM IVPB ONE; +SODIUM CHLORIDE 250 ML IV ONE; +SODIUM CHLORIDE IVPB ONE
[2023-06-07 12:24] LABS: BASO % 0.2 % (0-2.0); EOS % 0.4 % (0-4.5); HEMATOCRIT 42.8 % (35.4-49); HEMOGLOBIN 14.2 GM/dL (11.7-16.9); LYMPH % 2.7 % (8-40); MCH 29.4 pg (25.7-33.7); MCHC 33.1 g/dl (32.0-35.9); MEAN CELL VOLUME 88.8 fl (80-96); MEAN PLT VOLUME 7.6 fl (7.5-11.1); MONO % 9.3 % (3.8-10.2); NEUT % 87.4 % (42.8-82.8); PLATELET COUNT 204 10^3/uL (134-434); RBC 4.82 M/mm3 (4.00-5.60); RDW 17.5 % (11.9-15.9)
[2023-06-07 12:45] LABS: POTASSIUM 4.1 mmol/L (3.5-5.1)
[2023-06-07 12:48] LABS: ALBUMIN 3.8 g/dl (3.4-5.0); BLOOD UREA NITROGEN 25.4 mg/dL (7-18); CALCIUM 9.6 mg/dL (8.5-10.1); MAGNESIUM 2.3 mg/dL (1.8-2.4)
[2023-06-07 12:51] LABS: BILIRUBIN,DIRECT 0.1 mg/dL (0.0-0.2); CREATININE 1.1 mg/dL (0.55-1.3)
[2023-06-07 12:53] LABS: BILIRUBIN,TOTAL 0.6 mg/dL (0.2-1); TOT PROT 6.9 g/dl (6.4-8.2)
[2023-06-07 17:18] VITALS: BP 130/75; PULSE 98; RESP 18; TEMP 97.7
== END 2023-06-07 15:35 | disposition home or self-care (01) ==
LOC: JONCCHEMO 11:05 → J7W 11:08 → JONCCHEMO 15:35
PROVIDERS: ATTEND Internal Medicine Hematology & Oncology
DX: Z51.11 Encounter for antineoplastic chemotherapy (principal); C34.12 Malignant neoplasm of upper lobe, left bronchus or lung
CPT/HCPCS: 36415; 80048; 80076; 83735; 85025; 86704; 86803; 87340; 96367; 96411; 96413; J2469; J9305

== ENCOUNTER 2023-06-08 12:15 | Day surgery (SDC) | payer OTHER ==
[~2023-06-08 12:15] MED LIST changes: -CARBOPLATIN IVPB ONE; -CYANOCOBALAMIN (VITAMIN B-12) 1000 MCG/1 ML VIAL IM ONE; -DEXAMETHASONE SODIUM PHOSPHATE 10 MG in DEXTROSE 5%-WATER - 50 ML IVPB ONE; +DEXTROSE 5%-NORMAL SALINE 500 ML IV ONE; -PALONOSETRON HCL 0.25 MG/5 ML VIAL IVPUSH ONE; +PEGFILGRASTIM-CBQV (UDENYCA) 6 MG/0.6 ML SYRINGE SQ ONE; -PEMETREXED DISODIUM IVPB ONE; -SODIUM CHLORIDE 250 ML IV ONE; -SODIUM CHLORIDE IVPB ONE
[2023-06-08 14:14] VITALS: RESP 18; TEMP 97.6
[2023-06-08 17:00] VITALS: BP 134/64; PULSE 65
== END 2023-06-08 15:15 | disposition home or self-care (01) ==
LOC: J7W 12:15 → JONCCHEMO 12:15
PROVIDERS: ATTEND Internal Medicine Hematology & Oncology
PROC: 3E0337Z Introduction of Electrolytic and Water Balance Substance into Peripheral Vein, Percutaneous Approach (ICD-10-PCS; principal; 2023-06-08)
PROC: 3E033GC Introduction of Other Therapeutic Substance into Peripheral Vein, Percutaneous Approach (ICD-10-PCS; 2023-06-08)
DX: C34.12 Malignant neoplasm of upper lobe, left bronchus or lung (principal); Z76.89 Persons encountering health services in other specified circumstances
CPT/HCPCS: 96360; 96361; 96372; Q5111

== ENCOUNTER 2023-06-28 09:55 | Day surgery (SDC) | payer OTHER ==
[~2023-06-28 09:55] MED LIST changes: -DEXTROSE 5%-NORMAL SALINE 500 ML IV ONE; -PEGFILGRASTIM-CBQV (UDENYCA) 6 MG/0.6 ML SYRINGE SQ ONE; +SODIUM CHLORIDE 250 ML IV ONE
[2023-06-28] MEDS ORDERED: CYANOCOBALAMIN (VITAMIN B-12) 1000 MCG/1 ML VIAL IM ONE (10:00)
[2023-06-28] MEDS ORDERED: PALONOSETRON HCL 0.25 MG/5 ML VIAL IVPUSH ONE (10:00)
[2023-06-28] MEDS ORDERED: DEXAMETHASONE SODIUM PHOSPHATE 10 MG in DEXTROSE 5%-WATER - 50 ML IVPB ONE (10:00)
[2023-06-28] MEDS ORDERED: SODIUM CHLORIDE IVPB ONE ×2 (10:30→10:45)
[2023-06-28] MEDS ORDERED: PEMETREXED DISODIUM IVPB ONE (10:30)
[2023-06-28] MEDS ORDERED: CARBOPLATIN IVPB ONE (10:45)
[2023-06-28 10:46] LABS: HEMATOCRIT 36.5 % (35.4-49); HEMOGLOBIN 12.3 GM/dL (11.7-16.9); MCHC 33.7 g/dl (32.0-35.9); MEAN CELL VOLUME 92.1 fl (80-96); MEAN PLT VOLUME 7.5 fl (7.5-11.1); PLATELET COUNT 240 10^3/uL (134-434); RBC 3.96 M/mm3 (4.00-5.60); RDW 20.3 % (11.9-15.9); WHITE BLOOD COUNT 10.8 K/mm3 (4.0-10.0)
[2023-06-28 11:17] LABS: POTASSIUM 4.3 mmol/L (3.5-5.1)
[2023-06-28 11:19] LABS: ALBUMIN 3.3 g/dl (3.4-5.0); BLOOD UREA NITROGEN 15.8 mg/dL (7-18); CALCIUM 8.8 mg/dL (8.5-10.1); MAGNESIUM 2.3 mg/dL (1.8-2.4)
[2023-06-28 11:22] LABS: ANISOCYTOSIS 1+; BILIRUBIN,DIRECT 0.1 mg/dL (0.0-0.2); CREATININE 1.1 mg/dL (0.55-1.3); MACROCYTOSIS 0
[2023-06-28 11:24] LABS: BILIRUBIN,TOTAL 0.6 mg/dL (0.2-1)
[2023-06-28 11:25] LABS: TOT PROT 6.4 g/dl (6.4-8.2)
[2023-06-28 14:18] VITALS: BP 113/62; PULSE 91; RESP 18; TEMP 97.4
== END 2023-06-28 13:30 | disposition home or self-care (01) ==
LOC: JONCCHEMO 09:55 → J7W 09:56 → JONCCHEMO 13:30
PROVIDERS: ATTEND Internal Medicine Hematology & Oncology
DX: Z51.11 Encounter for antineoplastic chemotherapy (principal); C34.12 Malignant neoplasm of upper lobe, left bronchus or lung
CPT/HCPCS: 36415; 80048; 80076; 83735; 85025; 96375; 96411; 96413; J2469; J9305

== ENCOUNTER 2023-06-29 10:30 | Day surgery (SDC) | payer OTHER ==
[~2023-06-29 10:30] MED LIST changes: +DEXTROSE 5%-NORMAL SALINE 500 ML IV ONE; +PEGFILGRASTIM-CBQV (UDENYCA) 6 MG/0.6 ML SYRINGE SQ ONE; -SODIUM CHLORIDE 250 ML IV ONE
[2023-06-29 16:54] VITALS: BP 113/59; PULSE 86; RESP 18
== END 2023-06-29 13:10 | disposition home or self-care (01) ==
LOC: JONCCHEMO 10:30
PROVIDERS: ATTEND Internal Medicine Hematology & Oncology
PROC: 3E0337Z Introduction of Electrolytic and Water Balance Substance into Peripheral Vein, Percutaneous Approach (ICD-10-PCS; principal; 2023-06-29)
PROC: 3E013GC Introduction of Other Therapeutic Substance into Subcutaneous Tissue, Percutaneous Approach (ICD-10-PCS; 2023-06-29)
DX: C34.12 Malignant neoplasm of upper lobe, left bronchus or lung (principal)
CPT/HCPCS: 96360; 96361; 96372; Q5111